=== PATIENT | male | born 1955 | race Caucasian/White ===

== ENCOUNTER 2017-06-23 23:34 | Observation (INO) ==
[2017-06-23 23:56] LABS: Basophils # 0.1 K/mcL (0.0-0.2); Basophils % 0.8 %; Eosinophils # 0.5 K/mcL (0.0-0.6); Eosinophils % 3.5 %; Hematocrit 41.6 % (37.5-50.1); Hemoglobin 14.5 g/dL (12.9-16.9); Immature Granulocytes % 0.6 % (0-4); Lymphocytes # 3.8 K/mcL (0.6-4.6); Lymphocytes % 27.4 %; Mean Corpuscular HGB Conc 34.9 g/dL (31.6-35.5); Mean Corpuscular Hemoglobin 33.5 pg (28.0-33.3); Mean Corpuscular Volume 96.1 fL (83.0-100.0); Mean Platelet Volume 10.4 fL (9.4-12.4); Monocytes # 1.1 K/mcL (0.0-1.3); Monocytes % 7.7 %; Neutrophils # 8.2 K/mcL (1.6-8.9); Platelet Count 199 K/mcL (140-400); Red Blood Count 4.33 M/mcL (4.19-5.50)
[2017-06-24 00:06] LABS: INR 1.1; Prothrombin Time 11.8 Seconds (9.4-12.1)
[2017-06-24 00:09] LABS: Activated Partial Thrombo Time 28.2 Seconds (26.0-36.0)
[2017-06-24 00:15] LABS: BUN/Creatinine Ratio 13 (6-26); Blood Urea Nitrogen 19 mg/dL (6-20); Calcium 9.4 mg/dL (8.6-10.3); Carbon Dioxide 23 mEq/L (23-29); Chloride 106 mEq/L (98-107); Glucose 98 mg/dL (70-105); Osmolality,Calculated 288 (280-300); Potassium 3.5 mEq/L (3.5-5.1); Sodium 138 mEq/L (136-145); eGFR For African Americans 59 (> 60); eGFR For Non-African Americans 48 (> 60)
[2017-06-24 00:16] LABS: Troponin I < 0.03 ng/mL (< 0.04)
[2017-06-24] MEDS ORDERED: 0.9 % Sodium Chloride 1,000 ML IVC ONE (00:27)
[2017-06-24] MEDS ORDERED: Nitroglycerin 0.4 MG TAB.SUBL SL PRN (00:28)
--- NOTE | 2017-06-24 00:30 | Emergency Department Note ---
Disposition Clinical Impression: Dizziness Chest pain Qualifiers: Chest pain type: unspecified Qualified Code(s): R07.9 - Chest pain, unspecified Disposition: Admitted As Inpatient Condition: Fair General Adult HPI - General Chief complaint: ED Chest Pain Stated complaint: "CP/Light Headed/Nauseated" Time Seen by Provider: 06/23/17 23:41 Source: patient, family Limitations: no limitations Nursing Notes Reviewed: Yes Vital Signs Reviewed: Yes - History of Present Illness HPI Narrative: 61-year-old male has emergency department complaining of a month-long history of chest pain. Patient describes this as chest pressure. He localizes it to the Center his chest. Patient states he is a smoker, has hypertension. Patient states that he is also experiencing a little bit of dizziness. Patient describes it as feeling as if the room is spinning. Patient denies any numbness or tingling in the upper and lower extremities. Patient states that this is worse when he stands up and moves his head a certain way. Pain Scale: 6 - Related Data Home Medications Medication Instructions Recorded Confirmed Advair 100-50 Diskus 08/14/15 08/14/15 Metoprolol 08/14/15 Risperdal 08/14/15 Symbicort 80/4.5 08/14/15 ATROVENT Inhaler 06/23/17 Advair 100-50 Diskus 06/23/17 Albuterol Sulfate 06/23/17 Atorvastatin Calcium 06/23/17 Incruse Ellipta 06/23/17 Lisinopril-HCTZ 20-12.5 06/23/17 Meloxicam 06/23/17 Metoprolol Succinate 06/23/17 Omeprazole 06/23/17 Percocet 10-325 mg Tablet 06/23/17 Symbicort 160/4.5 06/23/17 Tamsulosin HCl 06/23/17 Ventolin Hfa 06/23/17 06/23/17 Allergies Allergy/AdvReac Type Severity Reaction Status Date / Time ciprofloxacin [From Cipro] Allergy Hives Verified 06/23/17 23:39 All systems ED: reviewed and negative except as stated. Review of Systems: As Per HPI Constitutional: Denies: fever Cardiovascular: Reports: chest pain. Denies: palpitations Respiratory: Reports: dyspnea. Denies: cough Gastrointestinal: Reports: abdominal pain. Denies: nausea, vomiting Genitourinary: Denies: urgency, dysuria Musculoskeletal: Reports: back pain, other (Left arm pain) Neurological: Reports: paresthesias (Left arm). Denies: headache Endocrine: Reports: fatigue Past Medical History - Past Medical History Medical history: Reports: COPD, hypertension Surgical history: Reports: no surgical history Psychiatric history: Reports: no psych history - Social History Smoking Status: Current every day smoker Smokeless Tobacco Status: No Alcohol use: Reports: none Drug use: Reports: none Physical Exam - General Limitations: no limitations General appearance: alert - Head Head exam: atraumatic, normocephalic - Eye Eye exam: Absent: scleral icterus, conjunctival injection - ENT ENT exam: normal exam, normal oropharynx - Neck Neck exam: Present: trachea midline. Absent: tenderness, meningismus - Chest Chest inspection: Present: normal inspection, symmetric chest wall rise - Respiratory Respiratory exam: Present: other (Rhonchi). Absent: respiratory distress - Cardiovascular Cardiovascular exam: Present: regular rate, normal rhythm, normal heart sounds - Abdominal Exam Abdominal exam: Present: soft, Non-Tender. Absent: distention, guarding, rebound - Extremities Exam Extremities exam: Present: full ROM, normal capillary refill. Absent: tenderness - Back Exam Back exam: Present: normal inspection, full ROM - Neurological Exam Neurological exam: Present: alert, oriented X3, CN II-XII intact, other (GCS 15) - Psychiatric Psychiatric exam: Present: normal affect, normal mood Course Vital Signs Temperature 97.2 F L 06/23/17 23:40 Pulse Rate 72 06/23/17 23:40 Respiratory Rate 14 06/23/17 23:40 Blood Pressure 133/68 06/23/17 23:40 O2 Sat by Pulse Oximetry 94 06/23/17 23:40 Temperature 97.2 F L 06/23/17 23:40 Pulse Rate 66 06/24/17 02:30 Respiratory Rate 18 06/24/17 02:30 Blood Pressure 106/69 06/24/17 02:30 O2 Sat by Pulse Oximetry 95 06/24/17 02:30 Oxygen Delivery Oxygen Delivery Room Air Medical Decision Making - MDM Narrative Medical decision making narrative: 61-year-old male presents emergency department with chest heaviness. Patient has history of MA in father, hyperlipidemia, is a smoker. His chest pain is typical. Electrocardiogram did not reveal any evidence of ischemic ST changes. Troponin was negative. CBC was within normal limits. Chest x-ray was normal. Patient was given sublingual nitroglycerin 2 and pain did not respond to this. He was then given fentanyl. Patient had acute renal insufficiency with mildly elevated creatinine. This was addressed with a liter of normal saline. Patient was also reporting some vertigo-type symptoms. CT of the head was obtained did not reveal any evidence of hemorrhagic stroke. There were no focal neurologic deficits on physical exam. GCS of 15. Meclizine was provided in this assisted with his symptoms. At this time, I believe this is most likely BPPV. Patient was given aspirin. Head CT 06/24/17 00:41 IMPRESSION: No acute intracranial abnormality. D/ / Frandy Sanchez MD / Frandy Sanchez MD Interpreting Provider: Frandy Sanchez MD Chest X-Ray 06/24/17 23:41 IMPRESSION: No acute process. D/ / Frandy Sanchez MD / Frandy Sanchez MD Interpreting Provider: Frandy Sanchez MD Vital Signs Temperature 97.2 F L 06/23/17 23:40 Pulse Rate 72 06/23/17 23:40 Respiratory Rate 14 06/23/17 23:40 Blood Pressure 133/68 06/23/17 23:40 O2 Sat by Pulse Oximetry 94 06/23/17 23:40 Temperature 97.2 F L 06/23/17 23:40 Pulse Rate 66 06/24/17 02:30 Respiratory Rate 18 06/24/17 02:30 Blood Pressure 106/69 06/24/17 02:30 O2 Sat by Pulse Oximetry 95 06/24/17 02:30 Oxygen Delivery Oxygen Delivery Room Air Patient was admitted for further workup of his chest pain. He is hemodynamically stable and not in any acute distress at time of admission. - Lab Data Result diagrams: 06/23/17 23:44 06/23/17 23:44 Lab Results 06/23/17 06/23/17 06/23/17 Range/Units 23:44 23:44 23:44 WBC 13.7 H (4.3-11.1) K/mcL RBC 4.33 (4.19-5.50) M/mcL Hgb 14.5 (12.9-16.9) g/dL Hct 41.6 (37.5-50.1) % MCV 96.1 (83.0-100.0) fL MCH 33.5 H (28.0-33.3) pg MCHC 34.9 (31.6-35.5) g/dL RDW 13.0 (11.5-14.5) % Plt Count 199 (140-400) K/mcL MPV 10.4 (9.4-12.4) fL Immature Gran % 0.6 (0-4) % Seg Neutrophils % 60.0 % Lymphocytes % 27.4 % Monocytes % 7.7 % Eosinophils % 3.5 % Basophils % 0.8 % Neutrophils # 8.2 (1.6-8.9) K/mcL Lymphocytes # 3.8 (0.6-4.6) K/mcL Monocytes # 1.1 (0.0-1.3) K/mcL Eosinophils # 0.5 (0.0-0.6) K/mcL Basophils # 0.1 (0.0-0.2) K/mcL PT 11.8 (9.4-12.1) Seconds INR 1.1 APTT 28.2 (26.0-36.0) Seconds D-Dimer 470 (0-500) ng/mLFEU Sodium 138 (136-145) mEq/L Potassium 3.5 (3.5-5.1) mEq/L Chloride 106 (98-107) mEq/L Carbon Dioxide 23 (23-29) mEq/L BUN 19 (6-20) mg/dL Creatinine 1.49 H (0.70-1.30) mg/dL Est GFR ( Amer) 59 L (> 60) Est GFR (Non-Af Amer) 48 L (> 60) BUN/Creatinine Ratio 13 (6-26) Glucose 98 (70-105) mg/dL Calculated Osmolality 288 (280-300) Calcium 9.4 (8.6-10.3) mg/dL Troponin I < 0.03 (< 0.04) ng/mL B-Natriuretic Peptide (Less than 100) pg/mL 05/18/18 Range/Units 23:44 WBC (4.3-11.1) K/mcL RBC (4.19-5.50) M/mcL Hgb (12.9-16.9) g/dL Hct (37.5-50.1) % MCV (83.0-100.0) fL MCH (28.0-33.3) pg MCHC (31.6-35.5) g/dL RDW (11.5-14.5) % Plt Count (140-400) K/mcL MPV (9.4-12.4) fL Immature Gran % (0-4) % Seg Neutrophils % % Lymphocytes % % Monocytes % % Eosinophils % % Basophils % % Neutrophils # (1.6-8.9) K/mcL Lymphocytes # (0.6-4.6) K/mcL Monocytes # (0.0-1.3) K/mcL Eosinophils # (0.0-0.6) K/mcL Basophils # (0.0-0.2) K/mcL PT (9.4-12.1) Seconds INR APTT (26.0-36.0) Seconds D-Dimer (0-500) ng/mLFEU Sodium (136-145) mEq/L Potassium (3.5-5.1) mEq/L Chloride (98-107) mEq/L Carbon Dioxide (23-29) mEq/L BUN (6-20) mg/dL Creatinine (0.70-1.30) mg/dL Est GFR ( Amer) (> 60) Est GFR (Non-Af Amer) (> 60) BUN/Creatinine Ratio (6-26) Glucose (70-105) mg/dL Calculated Osmolality (280-300) Calcium (8.6-10.3) mg/dL Troponin I (< 0.04) ng/mL B-Natriuretic Peptide 73 (Less than 100) pg/mL - EKG Data EKG #1 EKG attestation: Yes I reviewed and interpreted this EKG. EKG results narrative: 06/23/2017 23:43 Ventricular rate 73 bpm, MA interval 192 ms, QRS religious 97 segs, QT 377 ms , QTC 404 ms, no masses. Sinus rhythm with a ventricular rate of 73 bpm. Prazosin any ischemic changes noted on this electrocardiogram. This electrocardiogram was compared to a previous study performed on 07/10/2010. Attestation Statement - Attestation Attestation: I, Antonio Baum, examined this patient and my medical decision-making was reviewed with the [facility]/PA/Advanced Practice Nurse/Resident Physician. I agree with the documented findings, disposition and treatment plan as described except to the extent set forth below. 61-year-old male presents emergency Department with concerns of chest pain and lightheadedness. Patient states the "dizziness" feels like room spinning. Never had anything like this in the past. Patient describes pain in the center of his chest which is described as a pressure. Patient describes associated shortness of breath and diaphoresis with this chest pain. Initial troponin negative. EKG did not show evidence of acute STEMI. Patient will be admitted to the hospitalist for further care and evaluation of his chest pain
[2017-06-24] MEDS ORDERED: *HR* FentaNYL (PF) 100 MCG/2 ML VIAL IVP ONE (01:37)
[2017-06-24] MEDS ORDERED: Aspirin 81 MG TAB.CHEW PO ONE (02:03)
[2017-06-24] MEDS ORDERED: Ondansetron 4 MG/2 ML VIAL IVP ONE (04:31)
[2017-06-24] MEDS ORDERED: Naloxone 0.4 MG/ML INJ IVP PRN (05:04)
--- NOTE | 2017-06-24 05:09 | Internal Med History&Physical ---
Date of Encounter: 06/24/17 Time of Encounter: 04:50 Internal Medicine - H&P: HPI Chief complaint: chest pain Admitted From: Home Plans for Post Hospital Care: Home History of present illness: Mr. Andrew is a 61 year old male with PMH of HTN, COPD, tobacco abuse, morbid obesity, HLD, GERD, BPH who presents to the ER for worsening chest pain. Pt states he has been having localized substernal chest heaviness for the last week however yesterday evening the heaviness worsened which prompted his visit to the ER. He denied any associated symptoms with the chest pain, denied any alleviating or exacerbating symptoms. He received nitro SL in the ER with no improvement of his chest pain. He was given fentanyl which resolved the chest pain. He reports of having a stress test in the past years ago which was normal , however he states it left him feeling extremely fatigued and short of breath, due to which he does not want to undergo another stress test at this time. He also reported of having dizziness and sensation of the room spinning with movement. He received Meclazine in the ER which resolved his dizziness. Currently he is resting comfortably in bed and denies any headache, dizziness, lightheadness, chest pain, sob, abd pain, n/v, fever, or chills. Pt reports of being an every day smoker. Past Med Surg Social Fam HX - Past Medical History Medical history: COPD, hyperlipidemia, hypertension Psychiatric history: no psych history - Past Surgical History Surgical History: no surgical history - Social History Smoking Status: Current every day smoker Packs per day: 0.5 Smokeless Tobacco Status: No Alcohol use: none Drug use: none Internal Medicine - H&P: Meds Advair 100-50 Diskus 08/14/15 [History] Metoprolol 08/14/15 [History] Risperdal 08/14/15 [History] Symbicort 80/4.5 08/14/15 [History] ATROVENT Inhaler 06/23/17 [History] Advair 100-50 Diskus 06/23/17 [History] Albuterol Sulfate 06/23/17 [History] Atorvastatin Calcium 06/23/17 [History] Incruse Ellipta 06/23/17 [History] Lisinopril-HCTZ 20-12.5 06/23/17 [History] Meloxicam 06/23/17 [History] Metoprolol Succinate 06/23/17 [History] Omeprazole 06/23/17 [History] Percocet 10-325 mg Tablet 06/23/17 [History] Symbicort 160/4.5 06/23/17 [History] Tamsulosin HCl 06/23/17 [History] Ventolin Hfa 06/23/17 [History] 3 Allergy/AdvReac Type Severity Reaction Status Date / Time ciprofloxacin [From Cipro] Allergy Hives Verified 06/23/17 23:39 All Systems PM: A 10-system review of systems was performed and is negative for pertinent findings except as documented above in the HPI. - Constitutional Constitutional: as per HPI - Constitutional Vitals: Temp Pulse Resp BP Pulse Ox 98.0 F 64 16 103/60 95 06/24/17 04:15 06/24/17 04:15 06/24/17 04:15 06/24/17 04:15 06/24/17 04:15 General appearance: Present: A&O X 3, morbidly obese, no acute distress, answers questions appropriately - Head Head exam: Present: atraumatic, normocephalic - Respiratory Respiratory exam: Present: CTAB. Absent: accessory muscle use, rales, rhonchi, wheezes - Cardiovascular Cardiovascular exam: Present: RRR, +S1, +S2. Absent: diastolic murmur, gallop, rubs, systolic murmur - GI/Abdominal GI/Abdominal exam: Present: distended (obese), normal bowel sounds, soft, no peritoneal signs. Absent: tenderness - Extremities Exam Extremities exam: Present: warm, radial pulses palpable and symmetrical. Absent : calf tenderness, pedal edema - Neurological Exam Neurological exam: Present: oriented X3 - Psychiatric Psychiatric exam: Present: normal affect, normal mood Internal Med - H&P Results - Labs CBC & Chem 7: 06/23/17 23:44 06/23/17 23:44 - Impressions ITS Impressions Chest X-Ray 06/24/17 23:41 IMPRESSION: No acute process. D/ / Frandy Sanchez MD / Frandy Sanchez MD Interpreting Provider: Frandy Sanchez MD - Assessment and plan (1) Chest pain Current Visit: Yes Status: Acute Assessment and plan: Pt continues to adamantly refuse a nuclear stress test continue to monitor serial TNI f/u 2D echo pt is currently chest pain free tele monitoring Qualifiers: Chest pain type: unspecified Qualified Code(s): R07.9 - Chest pain, unspecified (2) KRIS (acute kidney injury) Current Visit: Yes Status: Acute Assessment and plan: continue IV fluids avoid nephrotoxic agents closely monitor renal function (3) Dizziness Current Visit: Yes Status: Acute Assessment and plan: clinical presentation consistent with BPPV resolved after receiving a dose of meclizine in the ER will continue to monitor (4) HTN (hypertension) Current Visit: Yes Status: Chronic Assessment and plan: BP within acceptable range resume home meds after verification continue to monitor BP Qualifiers: Hypertension type: essential hypertension Qualified Code(s): I10 - Essential (primary) hypertension (5) COPD (chronic obstructive pulmonary disease) Current Visit: Yes Status: Chronic Assessment and plan: no signs of acute exacerbation continue home meds Qualifiers: COPD type: unspecified COPD Qualified Code(s): J44.9 - Chronic obstructive pulmonary disease, unspecified (6) DVT prophylaxis Current Visit: Yes Status: Acute Assessment and plan: heparin SQ (7) Morbid obesity with BMI of 50.0-59.9, adult Current Visit: Yes Status: Chronic (8) Tobacco abuse Current Visit: Yes Status: Acute Assessment and plan: Smoking cessation counseling provided pt not ready to quit at this time refused nicotine supplementation - Time Spent With Patient Total time spent is greater than 50% in coordination of care (as documented) at patient's floor/unit and/or counseling patient:
[2017-06-24] MEDS ORDERED: 0.9 % Sodium Chloride 1,000 ML IVC SCH (05:15)
[2017-06-24] MEDS ORDERED: Ipratropium/Albuterol Neb 3 ML IH PRN (05:21)
[2017-06-24] MEDS: *HR* Heparin 5,000 UNIT/ML VIAL SQ SCH ×2 (05:26→18:00)
[2017-06-24] MEDS ORDERED: Perflutren Lipid Microsphere 1.3 ML in 0.9 % Sodium Chloride 8.7 ML IVP ONE (11:50)
[2017-06-24] MEDS: Budesonide/Formoterol 160/4.5 MDI IH SCH (20:09)
[2017-06-24] MEDS: *HR* OxyCODONE/APAP 10/325 TABLET PO PRN (21:19)
[2017-06-25 01:39] LABS: Basophils # 0.1 K/mcL (0.0-0.2); Basophils % 0.8 %; Eosinophils # 0.3 K/mcL (0.0-0.6); Eosinophils % 3.7 %; Hematocrit 38.4 % (37.5-50.1); Hemoglobin 12.7 g/dL (12.9-16.9); Immature Granulocytes % 0.4 % (0-4); Lymphocytes # 2.6 K/mcL (0.6-4.6); Lymphocytes % 28.2 %; Mean Corpuscular HGB Conc 33.1 g/dL (31.6-35.5); Mean Corpuscular Volume 96.7 fL (83.0-100.0); Mean Platelet Volume 10.7 fL (9.4-12.4); Monocytes # 0.6 K/mcL (0.0-1.3); Monocytes % 6.3 %; Neutrophils # 5.6 K/mcL (1.6-8.9); Platelet Count 154 K/mcL (140-400); Red Blood Count 3.97 M/mcL (4.19-5.50); Red Cell Distribution Width 13.2 % (11.5-14.5); Segmented Neutrophils % 60.6 %
[2017-06-25 01:59] LABS: BUN/Creatinine Ratio 14 (6-26); Blood Urea Nitrogen 17 mg/dL (6-20); Calcium 8.9 mg/dL (8.6-10.3); Carbon Dioxide 26 mEq/L (23-29); Chloride 108 mEq/L (98-107); Chol/HDL Ratio 5.9 (0-4.9); Cholesterol 148 mg/dL (< 200); Glucose 133 mg/dL (70-105); HDL Cholesterol 25 mg/dL (40-59); LDL Cholesterol,Calculated 95 mg/dL (0-99); Magnesium 1.8 mg/dL (1.6-2.6); Osmolality,Calculated 291 (280-300); Phosphorous 3.2 mg/dL (2.7-4.5); Potassium 3.5 mEq/L (3.5-5.1); Sodium 139 mEq/L (136-145); Triglycerides 142 mg/dL (< 150); eGFR For African Americans > 60 (> 60); eGFR For Non-African Americans > 60 (> 60)
[2017-06-25] MEDS: *HR* Heparin 5,000 UNIT/ML VIAL SQ SCH (05:29)
[2017-06-25 06:23] VITALS: BP 125/81
[2017-06-25] MEDS: Budesonide/Formoterol 160/4.5 MDI IH SCH (07:54)
[2017-06-25] MEDS: *HR* OxyCODONE/APAP 10/325 TABLET PO PRN (08:15)
[2017-06-25] MEDS ORDERED: (Umeclidinium Bromide [Incruse Ellipta] 62.5 MCG) IH SCH (09:00)
[2017-06-25] MEDS ORDERED: Metoprolol XL (24 HR) Succ 50 MG TAB.ER.24H PO SCH (09:00)
--- NOTE | 2017-06-25 10:05 | Discharge Summary ---
- NOTES TO OUTPATIENT PROVIDER Notes to Outpatient Provider: Patient admitted with chest pain. Did not want stress test at this time as he had a bad reaction to his last stress test. 2-D echocardiogram done showed normal EF of 60-65% with normal wall motion. He is clinically stable to be discharged home. He has had no chest pain since yesterday. He will follow up with his primary care provider and schedule a different kind of stress test as outpatient. Date of Encounter: 06/25/17 Time of Encounter: 10:02 - Discharge Diagnosis (1) Chest pain Priority: Primary Status: Acute Qualifiers: Chest pain type: other chest pain Qualified Code(s): R07.89 - Other chest pain; R07.8 - Other chest pain (2) Dizziness Priority: Secondary Status: Acute (3) HTN (hypertension) Priority: Secondary Status: Chronic Qualifiers: Hypertension type: essential hypertension Qualified Code(s): I10 - Essential (primary) hypertension (4) COPD (chronic obstructive pulmonary disease) Priority: Secondary Status: Chronic Qualifiers: COPD type: unspecified COPD Qualified Code(s): J44.9 - Chronic obstructive pulmonary disease, unspecified (5) DVT prophylaxis Priority: Secondary Status: Acute (6) Morbid obesity with BMI of 50.0-59.9, adult Priority: Secondary Status: Chronic (7) Tobacco abuse Priority: Secondary Status: Acute (8) KRIS (acute kidney injury) Priority: Secondary Status: Resolved Hospital course: Mr. Andrew is a 61 year old male Patient hospitalized here after presenting to the ER with chest pain. Usually refuses stress test as he had a bad reaction when he last time had a done. 2-D echocardiogram done showed normal EF of 60-65 % with normal wall motion. He did have mild acute kidney injury on presentation but this has resolved now. He had symptoms of dizziness on initial presentation which appeared to be due to BPPV. He received meclizine with resolution of dizziness in the ER. He received IV fluids. He no longer has any chest pain now. Troponins were negative. He is clinically stable to be discharged home. He will follow up with his primary care provider and schedule a different kind of stress test as outpatient. He has been counseled about smoking cessation. Discharge discussed with: patient, nurse Time spent discussing smoking cessation with patient: 3 to 10 minutes - Time Spent with Patient Total time spent providing and/or coordinating discharge services: Less than 30 minutes (20 min) - Discharge Medications Home Medications: Albuterol Sulfate [Ventolin Hfa] 2 puff IH Q4H PRN 06/24/17 [History] Atorvastatin Calcium [Lipitor] 80 mg PO HS 06/24/17 [History] Budesonide/Formoterol 160/4.5 [Symbicort 160/4.5] 2 puff IH BID 06/24/17 [ History] Fluticasone/Salmeterol [Advair 250-50 Diskus] 1 puff IH BID 06/24/17 [History] Lisinopril/Hydrochlorothiazide [Zestoretic 20-25 mg Tablet] 1 tab PO DAILY 06/24 [History] Meloxicam [Mobic] 15 mg PO DAILY PRN 06/24/17 [History] Metoprolol Succinate [Toprol Xl] 50 mg PO DAILY 06/24/17 [History] Omeprazole [PriLOSEC] 20 mg PO BIDAC 06/24/17 [History] Oxycodone HCl/Acetaminophen [Percocet 10-325 mg Tablet] 1 tab PO QID PRN [History] Tamsulosin [Flomax] 0.8 mg PO DAILY 06/24/17 [History] Umeclidinium [place] [Incruse Ellipta] 62.5 mcg IH DAILY 06/24/17 [History] Allergies/Adverse Reactions: 3 Allergy/AdvReac Type Severity Reaction Status Date / Time ciprofloxacin [From Cipro] Allergy Hives Verified 06/24/17 12:26 Date of admission: 06/24/17 03:00 Primary care physician: Brittany Alva Discharging clinician: Rikki Bergman Anticipated date of discharge: 06/25/17 - Constitutional Vitals: Temp Pulse Resp BP Pulse Ox 98.0 F 58 15 125/81 97 06/25/17 06:22 06/25/17 06:22 06/25/17 07:54 06/25/17 06:22 06/25/17 07:54 General appearance: Present: A&O X 3, morbidly obese, no acute distress, answers questions appropriately - Neck Neck exam general surgery: Present: supple, trachea midline. Absent: lymphadenopathy - Respiratory Respiratory exam: Present: CTAB. Absent: accessory muscle use, rales, rhonchi, wheezes - Cardiovascular Cardiovascular exam: Present: RRR, +S1, +S2. Absent: diastolic murmur, gallop, rubs, systolic murmur - GI/Abdominal GI/Abdominal exam: Present: normal bowel sounds, soft, no peritoneal signs. Absent: distended, tenderness - Neurological Exam Neurological exam: Present: alert, CN II-XII intact, oriented X3, no focal deficits. Absent: pronater drift, facial droop, speech deficit - Skin Skin exam: Present: dry, intact - Patient Status Disposition: Home, Self-Care Condition: Good Functional capacity at discharge: independent ambulation Overall status at discharge: patient is progressing back to baseline - Discharge Instructions Instructions: Chest Pain (DC) Follow Up With: Mega Valles DO [Primary Care Provider] - (in 1-2 weeks) Additional Instructions: Follow up with cardiology for cardiac stress test as outpatient. - Diet and Activity Activity: increase activity as tolerated Diet: low fat, low cholesterol, low salt diet
--- NOTE | 2017-06-26 14:19 | Electrocardiograph Report ---
[address] [address] Test Date: 2017-06-23 Pat Name: Jason Andrew Department: 103 Room: [facility] Gender: M Heel Emery Buffer: DEVIN : 1955 Requested By: Antonio Baum Order Number: [id number] Reading MD: Iraida Silva Measurements Intervals [place] Rate: 73 P: 34 ID: [id number] QRS: 44 QRSD: 97 T: 40 QT: 377 QTc: 404 Interpretive Statements SINUS RHYTHM Electronically Signed On 06-26-2017 14:18:10 EDT by Iraida Silva
== END 2017-06-25 11:27 | disposition home or self-care (01) ==
LOC: 3NENU 23:34 → EMEROO 23:34 → 3NENU 06-24 03:45
PROVIDERS: ADMIT Internal Medicine; ATTEND Internal Medicine

== ENCOUNTER 2018-12-14 19:12 | Observation (INO) ==
[2018-12-14 20:03] LABS: Basophils # 0.1 K/mcL (0.0-0.2); Basophils % 0.5 %; Eosinophils # 0.2 K/mcL (0.0-0.6); Eosinophils % 2.1 %; Hematocrit 42.6 % (37.5-50.1); Hemoglobin 14.6 g/dL (12.9-16.9); Immature Granulocytes % 0.5 % (0-4); Lymphocytes # 1.8 K/mcL (0.6-4.6); Lymphocytes % 17.6 %; Mean Corpuscular HGB Conc 34.3 g/dL (31.6-35.5); Mean Corpuscular Hemoglobin 33.4 pg (28.0-33.3); Mean Corpuscular Volume 97.5 fL (83.0-100.0); Mean Platelet Volume 9.9 fL (9.4-12.4); Monocytes # 0.8 K/mcL (0.0-1.3); Monocytes % 7.3 %; Neutrophils # 7.6 K/mcL (1.6-8.9); Platelet Count 136 K/mcL (140-400); Red Blood Count 4.37 M/mcL (4.19-5.50); Red Cell Distribution Width 13.1 % (11.5-14.5); White Blood Count 10.5 K/mcL (4.3-11.1)
[2018-12-14 20:13] LABS: BUN/Creatinine Ratio 11 (6-26); Blood Urea Nitrogen 11 mg/dL (8-23); Calcium 9.1 mg/dL (8.6-10.3); Carbon Dioxide 25 mEq/L (23-29); Chloride 102 mEq/L (98-107); Glucose 115 mg/dL (70-105); Osmolality,Calculated 284 (280-300); Potassium 3.3 mEq/L (3.5-5.1); Sodium 137 mEq/L (136-145); Troponin I < 0.03 ng/mL (< 0.04); eGFR For African Americans > 60 (> 60); eGFR For Non-African Americans > 60 (> 60)
[2018-12-14] MEDS ORDERED: Aspirin 325 MG TABLET PO ONE (20:36)
[2018-12-14] MEDS ORDERED: Potassium Chloride Elixir 20 MEQ/15 ML UDC PO ONE (22:37)
[2018-12-14] MEDS ORDERED: Nitroglycerin 0.4 MG TAB.SUBL SL PRN (22:59)
[2018-12-14] MEDS ORDERED: Nitroglycerin 0.4 MG TAB.SUBL SL ONE (23:00)
[2018-12-15] MEDS: *HR* OxyCODONE/APAP 10/325 TABLET PO PRN ×3 (00:06→14:47)
[2018-12-15] MEDS: *HR* Heparin 5,000 UNIT/ML VIAL SQ SCH ×2 (05:21→16:41)
[2018-12-15] MEDS ORDERED: Valsartan 160 MG TABLET PO SCH (09:00)
[2018-12-15] MEDS ORDERED: Aspirin 81 MG TAB.CHEW PO SCH (09:00)
[2018-12-15] MEDS ORDERED: hydroCHLOROthiazide 25 MG TABLET PO SCH (09:00)
[2018-12-15] MEDS ORDERED: Metoprolol XL (24 HR) Succ 50 MG TAB.ER.24H PO SCH (09:00)
[2018-12-15] MEDS ORDERED: Budesonide/Formoterol 160/4.5 1 PUFF INH IH SCH (10:00)
[2018-12-15 15:39] VITALS: BP 113/64
== END 2018-12-15 18:07 | disposition home or self-care (01) ==
LOC: 3BNU 19:12 → EMEROOARM 19:12 → 3BNU 21:14
PROVIDERS: ADMIT Internal Medicine; ATTEND Internal Medicine

== ENCOUNTER 2019-09-25 01:40 | Observation (INO) ==
[2019-09-25 02:14] LABS: Basophils # 0.1 K/mcL (0.0-0.2); Basophils % 0.8 %; Eosinophils # 0.5 K/mcL (0.0-0.6); Eosinophils % 5.7 %; Hematocrit 39.6 % (37.5-50.1); Hemoglobin 13.1 g/dL (12.9-16.9); Immature Granulocytes % 0.2 % (0-4); Lymphocytes # 2.5 K/mcL (0.6-4.6); Lymphocytes % 28.7 %; Mean Corpuscular HGB Conc 33.1 g/dL (31.6-35.5); Mean Corpuscular Hemoglobin 31.4 pg (28.0-33.3); Mean Platelet Volume 10.5 fL (9.4-12.4); Monocytes # 0.7 K/mcL (0.0-1.3); Neutrophils # 4.9 K/mcL (1.6-8.9); Platelet Count 181 K/mcL (140-400); Red Blood Count 4.17 M/mcL (4.19-5.50); Red Cell Distribution Width 13.7 % (11.5-14.5); Segmented Neutrophils % 56.6 %; White Blood Count 8.7 K/mcL (4.3-11.1)
[2019-09-25 02:16] LABS: Bilirubin,Urine Negative (Negative); Blood,Urine Negative (Negative); Clarity,Urine Clear (Clear); Color,Urine Colorless (Yellow); Glucose,Urine (UA) Normal (Normal); Ketones,Urine Negative (Negative); Leukocyte Esterase,Urine Negative (Negative); Nitrite,Urine Negative (Negative); Protein,Urine Negative (Neg-Trace); Specific Gravity,Urine 1.008 (1.010-1.025); Urobilinogen,Urine Normal (Normal)
[2019-09-25 02:17] LABS: INR 1.1; Prothrombin Time 12.3 Seconds (9.4-12.1)
[2019-09-25 02:20] LABS: Activated Partial Thrombo Time 31.2 Seconds (26.0-36.0)
[2019-09-25 02:26] LABS: Amphetamine Screen,Urine Negative ng/mL (Cutoff=1000); Barbiturate Screen,Urine Negative ng/mL (Cutoff=200); Benzodiazepines Screen,Urine Negative ng/mL (Cutoff=200); Cannabinoid Screen,Urine Negative ng/mL (Cutoff = 50); Cocaine Screen,Urine Negative ng/mL (Cutoff= 300); Opiate Screen,Urine Negative ng/mL (Cutoff=300); Phencyclidine Screen,Urine Negative ng/mL (Cutoff=25)
[2019-09-25 02:36] LABS: Alanine Aminotransferase 13 Units/L (7-52); Albumin/Globulin Ratio 1.1 (1.1-2.2); Alkaline Phosphatase 117 Units/L (34-104); Aspartate Amino Transferase 17 Units/L (13-39); BUN/Creatinine Ratio 17 (6-26); Bilirubin,Direct 0.1 mg/dL (0.0-0.2); Bilirubin,Indirect 0.3 mg/dL (0.0-1.0); Bilirubin,Total 0.4 mg/dL (0.3-1.0); Blood Urea Nitrogen 20 mg/dL (8-23); Calcium 9.3 mg/dL (8.6-10.3); Carbon Dioxide 26 mEq/L (23-29); Chloride 102 mEq/L (98-107); Ethanol < 10 mg/dL (Less than 10); Globulin 3.6 g/dL (2.4-3.5); Glucose 93 mg/dL (70-105); Osmolality,Calculated 286 (280-300); Potassium 4.5 mEq/L (3.5-5.1); Sodium 137 mEq/L (136-145); Total Protein 7.6 g/dL (6.4-8.9); Troponin I < 0.03 ng/mL (< 0.04); eGFR For African Americans > 60 (> 60); eGFR For Non-African Americans > 60 (> 60)
[2019-09-25 02:49] LABS: Thyroid Stimulating Hormone 2.029 mcIU/mL (0.340-5.600)
[2019-09-25] MEDS ORDERED: Aspirin 81 MG TAB.CHEW PO STA (03:17)
[2019-09-25] MEDS ORDERED: Acetaminophen 325 MG TABLET PO PRN (03:48)
[2019-09-25] MEDS ORDERED: Naloxone 0.4 MG/ML INJ IVP PRN (03:48)
[2019-09-25] MEDS ORDERED: Ondansetron 4 MG/2 ML VIAL IVP PRN (03:48)
[2019-09-25] MEDS: *HR* OxyCODONE/APAP 10/325 TABLET PO PRN ×3 (04:36→20:11)
[2019-09-25] MEDS ORDERED: Perflutren Lipid Microsphere 1.3 ML in 0.9 % Sodium Chloride 8.7 ML IVP PRN (05:01)
[2019-09-25 05:13] LABS: Basophils # 0.1 K/mcL (0.0-0.2); Basophils % 0.7 %; Eosinophils # 0.5 K/mcL (0.0-0.6); Hematocrit 39.1 % (37.5-50.1); Hemoglobin 12.7 g/dL (12.9-16.9); Immature Granulocytes % 0.4 % (0-4); Lymphocytes # 2.6 K/mcL (0.6-4.6); Lymphocytes % 32.1 %; Mean Corpuscular HGB Conc 32.5 g/dL (31.6-35.5); Mean Corpuscular Hemoglobin 30.6 pg (28.0-33.3); Mean Corpuscular Volume 94.2 fL (83.0-100.0); Mean Platelet Volume 10.4 fL (9.4-12.4); Monocytes # 0.6 K/mcL (0.0-1.3); Monocytes % 7.1 %; Neutrophils # 4.3 K/mcL (1.6-8.9); Platelet Count 178 K/mcL (140-400); Red Blood Count 4.15 M/mcL (4.19-5.50); Red Cell Distribution Width 13.7 % (11.5-14.5); Segmented Neutrophils % 53.7 %
[2019-09-25 05:33] LABS: Chol/HDL Ratio 6.4 (0-4.9); Magnesium 1.7 mg/dL (1.6-2.6); Phosphorous 3.3 mg/dL (2.7-4.5)
[2019-09-25 05:34] LABS: BUN/Creatinine Ratio 17 (6-26); Blood Urea Nitrogen 19 mg/dL (8-23); Calcium 9.4 mg/dL (8.6-10.3); Carbon Dioxide 26 mEq/L (23-29); Chloride 102 mEq/L (98-107); Glucose 106 mg/dL (70-105); Osmolality,Calculated 287 (280-300); Potassium 4.2 mEq/L (3.5-5.1); Sodium 137 mEq/L (136-145); eGFR For African Americans > 60 (> 60); eGFR For Non-African Americans > 60 (> 60)
[2019-09-25] MEDS: Tiotropium 18 MCG inhalation IH SCH (07:56)
[2019-09-25] MEDS: Budesonide/Formoterol 160/4.5 1 PUFF INH IH SCH ×2 (07:56→20:32)
[2019-09-25] MEDS: Valsartan 160 MG TABLET PO SCH (07:59)
[2019-09-25] MEDS: hydroCHLOROthiazide 25 MG TABLET PO SCH (07:59)
[2019-09-25] MEDS: Metoprolol XL (24 HR) Succ 50 MG TAB.ER.24H PO SCH (07:59)
[2019-09-25] MEDS: Aspirin Enteric Coated 81 MG Tablet PO SCH (07:59)
[2019-09-25 08:48] LABS: Estimated Average Glucose 123 mg/dl
[2019-09-26] MEDS: *HR* OxyCODONE/APAP 10/325 TABLET PO PRN ×2 (02:23→08:32)
[2019-09-26 02:26] LABS: Hematocrit 36.1 % (37.5-50.1); Hemoglobin 11.8 g/dL (12.9-16.9); Mean Corpuscular HGB Conc 32.7 g/dL (31.6-35.5); Mean Corpuscular Volume 94.8 fL (83.0-100.0); Mean Platelet Volume 10.5 fL (9.4-12.4); Platelet Count 160 K/mcL (140-400); Red Blood Count 3.81 M/mcL (4.19-5.50); Red Cell Distribution Width 13.9 % (11.5-14.5); White Blood Count 7.3 K/mcL (4.3-11.1)
[2019-09-26 02:47] LABS: BUN/Creatinine Ratio 17 (6-26); Blood Urea Nitrogen 22 mg/dL (8-23); Calcium 8.8 mg/dL (8.6-10.3); Carbon Dioxide 26 mEq/L (23-29); Chloride 104 mEq/L (98-107); Glucose 110 mg/dL (70-105); Osmolality,Calculated 288 (280-300); Potassium 4.4 mEq/L (3.5-5.1); Sodium 137 mEq/L (136-145); eGFR For African Americans > 60 (> 60); eGFR For Non-African Americans 55 (> 60)
[2019-09-26] MEDS: Valsartan 160 MG TABLET PO SCH (08:27)
[2019-09-26] MEDS: hydroCHLOROthiazide 25 MG TABLET PO SCH (08:27)
[2019-09-26] MEDS: Aspirin Enteric Coated 81 MG Tablet PO SCH (08:28)
[2019-09-26] MEDS: Metoprolol XL (24 HR) Succ 50 MG TAB.ER.24H PO SCH (08:28)
[2019-09-26] MEDS: Tiotropium 18 MCG inhalation IH SCH (10:15)
[2019-09-26] MEDS: Budesonide/Formoterol 160/4.5 1 PUFF INH IH SCH (10:15)
[2019-09-26 10:35] VITALS: BP 93/64
== END 2019-09-26 15:40 | disposition home or self-care (01) ==
LOC: EMEROOARM 01:40 → 3BNU 01:40
PROVIDERS: ADMIT Family Medicine; ATTEND Family Medicine

== ENCOUNTER 2020-11-14 08:49 | Inpatient (IN) ==
[2020-11-14] MEDS ORDERED: Isovue-370 500 ML BOTTLE IVP ONE (09:17)
[2020-11-14 12:07] LABS: Basophils # 0.1 K/mcL (0.0-0.2); Basophils % 0.6 %; Eosinophils # 0.4 K/mcL (0.0-0.6); Eosinophils % 2.3 %; Hemoglobin 11.5 g/dL (12.9-16.9); Lymphocytes % 12.3 %; Mean Corpuscular HGB Conc 32.9 g/dL (31.6-35.5); Mean Corpuscular Volume 100.6 fL (83.0-100.0); Mean Platelet Volume 10.4 fL (9.4-12.4); Monocytes % 6.1 %; Neutrophils # 12.4 K/mcL (1.6-8.9); Platelet Count 248 K/mcL (140-400); Red Blood Count 3.48 M/mcL (4.19-5.50); Segmented Neutrophils % 77.7 %
[2020-11-14 12:39] LABS: Alanine Aminotransferase 18 Units/L (7-52); Albumin 3.5 g/dL (3.5-5.7); Alkaline Phosphatase 110 Units/L (34-104); Aspartate Amino Transferase 50 Units/L (13-39); BUN/Creatinine Ratio 12 (6-26); Bilirubin,Total 1.6 mg/dL (0.3-1.0); Blood Urea Nitrogen 70 mg/dL (8-23); Calcium 9.3 mg/dL (8.6-10.3); Carbon Dioxide 24 mEq/L (23-29); Chloride 95 mEq/L (98-107); Globulin 3.6 g/dL (2.4-3.5); Glucose 108 mg/dL (70-105); Lipase 18 Units/L (11-82); Osmolality,Calculated 299 (280-300); Potassium 3.7 mEq/L (3.5-5.1); Sodium 134 mEq/L (136-145); Total Protein 7.1 g/dL (6.4-8.9); Troponin I < 0.03 ng/mL (< 0.04); eGFR For African Americans 12 (> 60); eGFR For Non-African Americans 10 (> 60)
[2020-11-14] MEDS ORDERED: 0.9 % Sodium Chloride 1,000 ML IVC ONE ×2 (13:02→13:41)
[2020-11-14] MEDS ORDERED: Piperacillin/Tazobactam 3.375 GM in Water for inj. (sterile) 20 ML IVP ONE (13:09)
[2020-11-14 13:13] LABS: Bilirubin,Urine Small (Negative); Blood,Urine Trace (Negative); Clarity,Urine Turbid (Clear); Color,Urine Yellow (Yellow); Glucose,Urine (UA) Normal (Normal); Hyaline Casts,Urine Many per lpf (None Seen); Ketones,Urine Negative (Negative); Leukocyte Esterase,Urine Moderate (Negative); Mucus,Urine Few per lpf (None-Few); Nitrite,Urine Negative (Negative); Protein,Urine 50 mg/dL (Neg-Trace); RBC,Urine 0-3 per hpf (0-3); Renal Epithelial Cells,Urine Moderate per hpf (None-Few); Specific Gravity,Urine 1.024 (1.010-1.025); Squamous Epithelial Cell,Urine Few per hpf (None-Few); Transitional Epi Cells,Urine Few per hpf (None-Few)
[2020-11-14 15:14] LABS: Creatine Kinase 2737 Units/L (30-223)
[2020-11-14] MEDS ORDERED: Ondansetron 4 MG/2 ML VIAL IVP PRN (16:22)
[2020-11-14] MEDS ORDERED: Naloxone 0.4 MG/ML INJ IVP PRN (16:22)
[2020-11-14] MEDS ORDERED: Acetaminophen 325 MG TABLET PO PRN (16:22)
[2020-11-14] MEDS: Ringers Solution, Lactated 1,000 ML IVC SCH (17:58)
[2020-11-14] MEDS ORDERED: Piperacillin/Tazobactam 3.375 GM in 0.9 % Sodium Chloride Mini Bag 100 ML IVPB SCH (18:00)
[2020-11-14] MEDS ORDERED: Ipratropium/Albuterol Neb 3 ML IH PRN (19:10)
[2020-11-14] MEDS: Sennosides/Docusate Sodium TABLET PO SCH (21:35)
[2020-11-14] MEDS: polyethylene glycoL 3350 17 GM POWD.PACK PO SCH (21:35)
[2020-11-15] MEDS: Ringers Solution, Lactated 1,000 ML IVC SCH ×3 (02:19→18:14)
[2020-11-15] MEDS: Piperacillin/Tazobactam 3.375 GM in 0.9 % Sodium Chloride Mini Bag 100 ML IVPB SCH ×3 (04:21→21:54)
[2020-11-15 07:04] LABS: Basophils # 0.1 K/mcL (0.0-0.2); Basophils % 0.5 %; Eosinophils # 0.4 K/mcL (0.0-0.6); Eosinophils % 3.3 %; Hematocrit 29.9 % (37.5-50.1); Hemoglobin 10.2 g/dL (12.9-16.9); Immature Granulocytes % 0.8 % (0-4); Lymphocytes # 1.7 K/mcL (0.6-4.6); Mean Corpuscular HGB Conc 34.1 g/dL (31.6-35.5); Mean Corpuscular Hemoglobin 33.7 pg (28.0-33.3); Mean Corpuscular Volume 98.7 fL (83.0-100.0); Mean Platelet Volume 9.7 fL (9.4-12.4); Monocytes # 0.9 K/mcL (0.0-1.3); Monocytes % 8.5 %; Neutrophils # 7.6 K/mcL (1.6-8.9); Platelet Count 176 K/mcL (140-400); Red Blood Count 3.03 M/mcL (4.19-5.50); Red Cell Distribution Width 12.7 % (11.5-14.5); Segmented Neutrophils % 70.9 %; White Blood Count 10.7 K/mcL (4.3-11.1)
[2020-11-15] MEDS: *HR* Enoxaparin 40 MG/0.4 ML SYRINGE SQ SCH (07:31)
[2020-11-15 07:48] LABS: Folate 8.6 ng/mL (3.0-16.0)
[2020-11-15] MEDS: Sennosides/Docusate Sodium TABLET PO SCH ×2 (09:54→21:54)
[2020-11-15] MEDS: polyethylene glycoL 3350 17 GM POWD.PACK PO SCH ×2 (09:54→21:54)
[2020-11-15] MEDS: Nicotine 14 MG PATCH.TD24 TD SCH (09:54)
[2020-11-15 12:11] LABS: Albumin 3.3 g/dL (3.5-5.7); Bilirubin,Direct 0.6 mg/dL (0.0-0.2); Bilirubin,Indirect 0.5 mg/dL (0.0-1.0); Bilirubin,Total 1.1 mg/dL (0.3-1.0); Calcium 9.2 mg/dL (8.6-10.3); Globulin 3.3 g/dL (2.4-3.5); Magnesium 1.9 mg/dL (1.6-2.6); Potassium 3.7 mEq/L (3.5-5.1); Thyroid Stimulating Hormone 0.512 mcIU/mL (0.340-5.600); Total Protein 6.6 g/dL (6.4-8.9)
[2020-11-15] MEDS ORDERED: Cyanocobalamin (B-12) 1,000 MCG/ML VIAL SQ ONE (13:55)
[2020-11-16] MEDS: Ringers Solution, Lactated 1,000 ML IVC SCH ×2 (04:15→14:50)
[2020-11-16] MEDS: Piperacillin/Tazobactam 3.375 GM in 0.9 % Sodium Chloride Mini Bag 100 ML IVPB SCH ×3 (04:16→20:37)
[2020-11-16 04:38] LABS: Basophils # 0.1 K/mcL (0.0-0.2); Basophils % 0.7 %; Eosinophils # 0.2 K/mcL (0.0-0.6); Eosinophils % 2.3 %; Hematocrit 29.2 % (37.5-50.1); Hemoglobin 10.3 g/dL (12.9-16.9); Immature Granulocytes % 1.2 % (0-4); Lymphocytes # 1.5 K/mcL (0.6-4.6); Mean Corpuscular HGB Conc 35.3 g/dL (31.6-35.5); Mean Corpuscular Hemoglobin 34.1 pg (28.0-33.3); Mean Corpuscular Volume 96.7 fL (83.0-100.0); Mean Platelet Volume 9.6 fL (9.4-12.4); Monocytes # 0.7 K/mcL (0.0-1.3); Monocytes % 8.2 %; Neutrophils # 6.4 K/mcL (1.6-8.9); Platelet Count 187 K/mcL (140-400); Red Blood Count 3.02 M/mcL (4.19-5.50); Red Cell Distribution Width 12.2 % (11.5-14.5); Segmented Neutrophils % 70.6 %; White Blood Count 9.1 K/mcL (4.3-11.1)
[2020-11-16 04:59] LABS: Calcium 9.5 mg/dL (8.6-10.3); Magnesium 1.5 mg/dL (1.6-2.6); Potassium 3.5 mEq/L (3.5-5.1)
[2020-11-16] MEDS: *HR* Enoxaparin 40 MG/0.4 ML SYRINGE SQ SCH (06:17)
[2020-11-16] MEDS: polyethylene glycoL 3350 17 GM POWD.PACK PO SCH ×2 (08:25→20:37)
[2020-11-16] MEDS: Nicotine 14 MG PATCH.TD24 TD SCH ×2 (08:25→23:54)
[2020-11-16] MEDS: Sennosides/Docusate Sodium TABLET PO SCH ×2 (08:25→20:36)
[2020-11-16] MEDS ORDERED: NIFEdipine XL (24 HR) 30 MG TAB.ER.24 PO SCH (09:00)
[2020-11-16] MEDS: *HR* OxyCODONE/APAP 7.5/325 TABLET PO PRN (20:04)
[2020-11-17] MEDS ORDERED: NIFEdipine Immed Rel 10 MG CAPSULE PO ONE (00:30)
[2020-11-17] MEDS: Ringers Solution, Lactated 1,000 ML IVC SCH (02:06)
[2020-11-17] MEDS: *HR* OxyCODONE/APAP 7.5/325 TABLET PO PRN ×3 (02:07→17:14)
[2020-11-17 02:24] LABS: Basophils # 0.1 K/mcL (0.0-0.2); Basophils % 1.1 %; Eosinophils # 0.2 K/mcL (0.0-0.6); Eosinophils % 2.5 %; Hematocrit 30.9 % (37.5-50.1); Hemoglobin 10.5 g/dL (12.9-16.9); Immature Granulocytes % 1.5 % (0-4); Lymphocytes # 1.7 K/mcL (0.6-4.6); Lymphocytes % 18.2 %; Mean Corpuscular Hemoglobin 32.8 pg (28.0-33.3); Mean Corpuscular Volume 96.6 fL (83.0-100.0); Mean Platelet Volume 9.2 fL (9.4-12.4); Monocytes # 0.9 K/mcL (0.0-1.3); Monocytes % 9.7 %; Neutrophils # 6.3 K/mcL (1.6-8.9); Platelet Count 193 K/mcL (140-400); Red Cell Distribution Width 11.9 % (11.5-14.5); White Blood Count 9.4 K/mcL (4.3-11.1)
[2020-11-17 02:48] LABS: BUN/Creatinine Ratio 26 (6-26); Blood Urea Nitrogen 27 mg/dL (8-23); Calcium 9.3 mg/dL (8.6-10.3); Carbon Dioxide 26 mEq/L (23-29); Chloride 103 mEq/L (98-107); Glucose 106 mg/dL (70-105); Magnesium 1.3 mg/dL (1.6-2.6); Osmolality,Calculated 292 (280-300); Potassium 3.2 mEq/L (3.5-5.1); Sodium 138 mEq/L (136-145); eGFR For African Americans > 60 (> 60); eGFR For Non-African Americans > 60 (> 60)
[2020-11-17] MEDS: Piperacillin/Tazobactam 3.375 GM in 0.9 % Sodium Chloride Mini Bag 100 ML IVPB SCH (04:42)
[2020-11-17] MEDS: *HR* Enoxaparin 40 MG/0.4 ML SYRINGE SQ SCH (06:17)
[2020-11-17] MEDS: Aspirin Enteric Coated 81 MG Tablet PO SCH (09:21)
[2020-11-17] MEDS: NIFEdipine XL (24 HR) 60 MG TAB.ER.24 PO SCH (09:21)
[2020-11-17] MEDS: Sennosides/Docusate Sodium TABLET PO SCH (09:21)
[2020-11-17] MEDS: Metoprolol XL (24 HR) Succ 50 MG TAB.ER.24H PO SCH (09:21)
[2020-11-17] MEDS: Nicotine 14 MG PATCH.TD24 TD SCH (09:23)
[2020-11-17] MEDS: polyethylene glycoL 3350 17 GM POWD.PACK PO SCH ×2 (09:23→22:44)
[2020-11-18] MEDS: *HR* OxyCODONE/APAP 7.5/325 TABLET PO PRN ×3 (00:25→16:12)
[2020-11-18] MEDS: *HR* Enoxaparin 40 MG/0.4 ML SYRINGE SQ SCH (06:28)
[2020-11-18] MEDS: Nicotine 14 MG PATCH.TD24 TD SCH (07:55)
[2020-11-18] MEDS: polyethylene glycoL 3350 17 GM POWD.PACK PO SCH (07:55)
[2020-11-18] MEDS: Metoprolol XL (24 HR) Succ 50 MG TAB.ER.24H PO SCH (07:56)
[2020-11-18] MEDS: Aspirin Enteric Coated 81 MG Tablet PO SCH (07:56)
[2020-11-18 08:18] LABS: Basophils # 0.1 K/mcL (0.0-0.2); Basophils % 0.9 %; Eosinophils # 0.4 K/mcL (0.0-0.6); Eosinophils % 3.6 %; Hematocrit 30.8 % (37.5-50.1); Hemoglobin 10.3 g/dL (12.9-16.9); Immature Granulocytes % 2.2 % (0-4); Lymphocytes # 1.9 K/mcL (0.6-4.6); Lymphocytes % 19.4 %; Mean Corpuscular HGB Conc 33.4 g/dL (31.6-35.5); Mean Corpuscular Hemoglobin 32.8 pg (28.0-33.3); Mean Corpuscular Volume 98.1 fL (83.0-100.0); Mean Platelet Volume 9.3 fL (9.4-12.4); Monocytes # 1.1 K/mcL (0.0-1.3); Monocytes % 10.8 %; Neutrophils # 6.3 K/mcL (1.6-8.9); Platelet Count 207 K/mcL (140-400); Red Blood Count 3.14 M/mcL (4.19-5.50); Red Cell Distribution Width 11.9 % (11.5-14.5); Segmented Neutrophils % 63.1 %
[2020-11-18 08:33] LABS: BUN/Creatinine Ratio 24 (6-26); Blood Urea Nitrogen 19 mg/dL (8-23); Calcium 9.2 mg/dL (8.6-10.3); Carbon Dioxide 29 mEq/L (23-29); Chloride 102 mEq/L (98-107); Glucose 90 mg/dL (70-105); Magnesium 1.5 mg/dL (1.6-2.6); Osmolality,Calculated 288 (280-300); Potassium 3.4 mEq/L (3.5-5.1); Sodium 138 mEq/L (136-145); eGFR For African Americans > 60 (> 60); eGFR For Non-African Americans > 60 (> 60)
[2020-11-18] MEDS: NIFEdipine XL (24 HR) 60 MG TAB.ER.24 PO SCH (09:14)
[2020-11-18] MEDS ORDERED: polyethylene glycoL 3350 17 GM POWD.PACK PO PRN (11:47)
[2020-11-18] MEDS: Budesonide/Formoterol 80/4.5 1 PUFF INH IH SCH (20:14)
[2020-11-19] MEDS ORDERED: Tiotropium 10 INH DOSE IH ONE (03:35)
[2020-11-19] MEDS: *HR* OxyCODONE/APAP 7.5/325 TABLET PO PRN (05:47)
[2020-11-19 06:10] LABS: BUN/Creatinine Ratio 18 (6-26); Blood Urea Nitrogen 16 mg/dL (8-23); Calcium 9.1 mg/dL (8.6-10.3); Carbon Dioxide 27 mEq/L (23-29); Chloride 101 mEq/L (98-107); Glucose 121 mg/dL (70-105); Magnesium 1.6 mg/dL (1.6-2.6); Osmolality,Calculated 282 (280-300); Potassium 3.6 mEq/L (3.5-5.1); Sodium 135 mEq/L (136-145); eGFR For African Americans > 60 (> 60); eGFR For Non-African Americans > 60 (> 60)
[2020-11-19] MEDS: Ringers Solution, Lactated 1,000 ML IVC SCH (07:05)
[2020-11-19] MEDS: *HR* Enoxaparin 40 MG/0.4 ML SYRINGE SQ SCH (08:02)
[2020-11-19] MEDS: Aspirin Enteric Coated 81 MG Tablet PO SCH (08:06)
[2020-11-19] MEDS: Metoprolol XL (24 HR) Succ 50 MG TAB.ER.24H PO SCH (08:06)
[2020-11-19] MEDS: Nicotine 14 MG PATCH.TD24 TD SCH (08:07)
[2020-11-19] MEDS: NIFEdipine XL (24 HR) 60 MG TAB.ER.24 PO SCH (10:06)
[2020-11-19] MEDS ORDERED: hydroCHLOROthiazide 25 MG TABLET PO SCH (10:45)
[2020-11-19] MEDS: Tiotropium 10 INH DOSE IH SCH (11:25)
[2020-11-19] MEDS: Budesonide/Formoterol 80/4.5 1 PUFF INH IH SCH ×2 (11:25→19:58)
[2020-11-19] MEDS: *HR* OxyCODONE/APAP 10/325 TABLET PO PRN ×2 (14:20→20:31)
[2020-11-20] MEDS: *HR* Enoxaparin 40 MG/0.4 ML SYRINGE SQ SCH (06:30)
[2020-11-20] MEDS: *HR* OxyCODONE/APAP 10/325 TABLET PO PRN ×2 (07:31→16:32)
[2020-11-20] MEDS: Aspirin Enteric Coated 81 MG Tablet PO SCH (07:31)
[2020-11-20] MEDS: Nicotine 14 MG PATCH.TD24 TD SCH (07:32)
[2020-11-20] MEDS: Metoprolol XL (24 HR) Succ 50 MG TAB.ER.24H PO SCH (07:32)
[2020-11-20] MEDS: Tiotropium 10 INH DOSE IH SCH (08:07)
[2020-11-20] MEDS: Budesonide/Formoterol 80/4.5 1 PUFF INH IH SCH ×2 (08:07→20:39)
[2020-11-20] MEDS ORDERED: hydroCHLOROthiazide 25 MG TABLET PO SCH (09:00)
[2020-11-20] MEDS ORDERED: Valsartan 160 MG TABLET PO SCH (09:00)
[2020-11-20 12:03] LABS: Influenza A PCR Negative (Negative); Influenza B PCR Negative (Negative); Resp. Syncytial Virus PCR Negative (Negative)
[2020-11-20 12:06] LABS: SARS-CoV-2 by PCR (In House) Negative (Negative)
[2020-11-20 18:59] VITALS: BP 119/72; PULSE 81; TEMP 100
[2020-11-20 20:41] VITALS: O2SAT 91
== END 2020-11-20 21:07 | disposition other institution (70) | DRG 871 ==
LOC: EMEROOARM 08:49 → 3ANU 08:49 → SUATTDRO 18:09 → 3ANU 18:52 → SUATTDRO 19:12
PROVIDERS: ADMIT Pharmacist; ATTEND Internal Medicine

== ENCOUNTER 2020-12-19 16:52 | Inpatient (IN) ==
[2020-12-19] MEDS ORDERED: Vancomycin 2,000 MG/520 ML IV.SOLN IVPB ONE (17:34)
[2020-12-19] MEDS ORDERED: 0.9 % Sodium Chloride 1,000 ML IV ONE (17:34)
[2020-12-19 18:02] LABS: Basophils # 0.1 K/mcL (0.0-0.2); Basophils % 0.4 %; Eosinophils # 0.1 K/mcL (0.0-0.6); Eosinophils % 0.4 %; Hematocrit 26.4 % (37.5-50.1); Hemoglobin 9.1 g/dL (12.9-16.9); Immature Granulocytes % 3.5 % (0-4); Lymphocytes # 1.5 K/mcL (0.6-4.6); Lymphocytes % 9.4 %; Mean Corpuscular HGB Conc 34.5 g/dL (31.6-35.5); Mean Platelet Volume 9.3 fL (9.4-12.4); Platelet Count 261 K/mcL (140-400); Red Blood Count 2.84 M/mcL (4.19-5.50); Segmented Neutrophils % 80.3 %; White Blood Count 16.2 K/mcL (4.3-11.1)
[2020-12-19 18:20] LABS: Albumin 2.8 g/dL (3.5-5.7); Albumin/Globulin Ratio 0.7 (1.1-2.2); Bilirubin,Direct 0.8 mg/dL (0.0-0.2); Bilirubin,Indirect 0.6 mg/dL (0.0-1.0); Bilirubin,Total 1.4 mg/dL (0.3-1.0); Calcium 8.8 mg/dL (8.6-10.3); Globulin 3.9 g/dL (2.4-3.5); Total Protein 6.7 g/dL (6.4-8.9)
[2020-12-19 18:27] LABS: Troponin I 0.04 ng/mL (< 0.04)
[2020-12-19] MEDS ORDERED: Cefepime HCl 2,000 MG in Water for inj. (sterile) 20 ML IVP ONE (19:00)
[2020-12-19 19:23] LABS: INR 1.4; Prothrombin Time 15.4 Seconds (9.4-12.1)
[2020-12-19 19:25] LABS: Activated Partial Thrombo Time 26.2 Seconds (26.0-36.0)
[2020-12-19 19:40] LABS: Bilirubin,Urine Negative (Negative); Blood,Urine Small (Negative); Clarity,Urine Clear (Clear); Color,Urine Yellow (Yellow); Glucose,Urine (UA) Normal (Normal); Ketones,Urine Negative (Negative); Leukocyte Esterase,Urine Negative (Negative); Nitrite,Urine Negative (Negative); Protein,Urine 100 mg/dL (Neg-Trace); Specific Gravity,Urine 1.025 (1.010-1.025); Urobilinogen,Urine Normal (Normal)
[2020-12-19 19:43] LABS: Hyaline Casts,Urine Few per lpf (None Seen); Squamous Epithelial Cell,Urine Few per hpf (None-Few)
[2020-12-19 19:44] LABS: Bacteria,Urine Moderate per hpf (None-Few); Mucus,Urine Few per lpf (None-Few)
[2020-12-19] MEDS ORDERED: Naloxone 0.4 MG/ML INJ IVP PRN (21:57)
[2020-12-19 22:52] LABS: BUN/Creatinine Ratio 28 (6-26); Blood Urea Nitrogen 85 mg/dL (8-23); Calcium 8.5 mg/dL (8.6-10.3); Carbon Dioxide 24 mEq/L (23-29); Chloride 89 mEq/L (98-107); Glucose 104 mg/dL (70-105); Osmolality,Calculated 282 (280-300); Potassium 5.2 mEq/L (3.5-5.1); Sodium 123 mEq/L (136-145); Troponin I < 0.03 ng/mL (< 0.04); eGFR For African Americans 25 (> 60); eGFR For Non-African Americans 21 (> 60)
[2020-12-20 00:49] LABS: Basophils # 0.1 K/mcL (0.0-0.2); Basophils % 0.3 %; Eosinophils # 0.2 K/mcL (0.0-0.6); Eosinophils % 1.6 %; Hematocrit 24.9 % (37.5-50.1); Hemoglobin 8.3 g/dL (12.9-16.9); Immature Granulocytes % 2.9 % (0-4); Lymphocytes # 1.4 K/mcL (0.6-4.6); Lymphocytes % 9.7 %; Mean Corpuscular HGB Conc 33.3 g/dL (31.6-35.5); Mean Corpuscular Hemoglobin 31.1 pg (28.0-33.3); Mean Corpuscular Volume 93.3 fL (83.0-100.0); Monocytes # 0.9 K/mcL (0.0-1.3); Monocytes % 6.1 %; Neutrophils # 11.6 K/mcL (1.6-8.9); Platelet Count 230 K/mcL (140-400); Red Blood Count 2.67 M/mcL (4.19-5.50); Red Cell Distribution Width 14.1 % (11.5-14.5); Segmented Neutrophils % 79.4 %; White Blood Count 14.6 K/mcL (4.3-11.1)
[2020-12-20 00:51] LABS: VBG HCO3 24 mEq/L (21-27); VBG PCO2 41 mmHg (41-51); VBG PH 7.37 pH Units (7.32-7.42); VBG PO2 50 mmHg (25-50)
[2020-12-20 00:59] LABS: INR 1.4; Prothrombin Time 15.2 Seconds (9.4-12.1)
[2020-12-20 01:05] LABS: Albumin 2.7 g/dL (3.5-5.7); Albumin/Globulin Ratio 0.8 (1.1-2.2); Bilirubin,Total 1.2 mg/dL (0.3-1.0); Calcium 8.5 mg/dL (8.6-10.3); Globulin 3.6 g/dL (2.4-3.5); Total Protein 6.3 g/dL (6.4-8.9)
[2020-12-20] MEDS ORDERED: *HR* Dextrose 50 % in Water (Syg) 50 ML SYRINGE IVP PRN (01:20)
[2020-12-20] MEDS ORDERED: D5% in Water 1,000 ML IVC PRN (01:20)
[2020-12-20] MEDS ORDERED: Dextrose Gel 15 GM/37.5 ML TUBE PO PRN ×2 (01:20)
[2020-12-20] MEDS ORDERED: Nicotine 2 MG GUM BC PRN (01:32)
[2020-12-20 02:06] LABS: Magnesium 1.7 mg/dL (1.6-2.6); Phosphorous 4.1 mg/dL (2.7-4.5)
[2020-12-20 02:20] LABS: Thyroid Stimulating Hormone 1.277 mcIU/mL (0.340-5.600)
[2020-12-20] MEDS: Ipratropium/Albuterol Neb 3 ML IH SCH ×5 (03:14→20:55)
[2020-12-20] MEDS ORDERED: Cefepime HCl 1,000 MG in Water for inj. (sterile) 10 ML IVPB SCH (06:00)
[2020-12-20] MEDS ORDERED: Piperacillin/Tazobactam 3.375 GM in 0.9 % Sodium Chloride Mini Bag 100 ML IVPB SCH (08:00)
[2020-12-20] MEDS: *HR* Heparin 5,000 UNIT/ML VIAL SQ SCH ×3 (08:39→20:27)
[2020-12-20] MEDS: Lactobacillus 1 EACH CAP.SPRINK PO SCH ×3 (08:39→16:18)
[2020-12-20] MEDS: Chlorhexidine Rinse 15 ML MOUTHWASH MM SCH ×2 (08:39→19:34)
[2020-12-20] MEDS: Nicotine 14 MG PATCH.TD24 TD SCH (08:39)
[2020-12-20] MEDS: Piperacillin/Tazobactam 3.375 GM in 0.9 % Sodium Chloride Mini Bag 100 ML IVPB SCH ×2 (09:56→16:17)
[2020-12-20] MEDS: Vancomycin 1,500 MG/265 ML IV.SOLN IVPB SCH (09:56)
[2020-12-20 19:18] LABS: Acinetobacter baumannii by PCR Not Detected (Not Detect); Candida albicans by PCR Not Detected (Not Detect); Candida glabrata by PCR Not Detected (Not Detect); Candida krusei by PCR Not Detected (Not Detect); Candida parapsilosis by PCR Not Detected (Not Detect); Candida tropicalis by PCR Not Detected (Not Detect); Enterobacter cloacae Cmplx PCR Not Detected (Not Detect); Enterobacteriaceae by PCR Not Detected (Not Detect); Enterococcus by PCR Not Detected (Not Detect); Escherichia coli by PCR Not Detected (Not Detect); Klebsiella oxytoca by PCR Not Detected (Not Detect); Klebsiella pneumoniae by PCR Not Detected (Not Detect); Proteus by PCR Not Detected (Not Detect); Pseudomonas aeruginosa by PCR Not Detected (Not Detect); Serratia marcescens by PCR Not Detected (Not Detect); Staphylococcus aureus by PCR Not Detected (Not Detect); Staphylococcus by PCR DETECTED (Not Detect); Streptococcus agalactiae(B)PCR Not Detected (Not Detect); Streptococcus by PCR Not Detected (Not Detect); Streptococcus pneumoniae PCR Not Detected (Not Detect); Streptococcus pyogenes (A) PCR Not Detected (Not Detect); mecA Methicillin-Resist Gene Not Detected (Not Detect)
[2020-12-20] MEDS: *HR* OxyCODONE Oral Soln 5 MG/5 ML UD.LIQ PO PRN (20:26)
[2020-12-20] MEDS: Budesonide/Formoterol 80/4.5 1 PUFF INH IH SCH (20:55)
[2020-12-21 01:17] LABS: Hematocrit 21.9 % (37.5-50.1); Hemoglobin 7.4 g/dL (12.9-16.9); Mean Corpuscular HGB Conc 33.8 g/dL (31.6-35.5); Mean Corpuscular Hemoglobin 32.2 pg (28.0-33.3); Mean Corpuscular Volume 95.2 fL (83.0-100.0); Mean Platelet Volume 9.3 fL (9.4-12.4); Platelet Count 210 K/mcL (140-400); Red Cell Distribution Width 14.1 % (11.5-14.5); White Blood Count 12.8 K/mcL (4.3-11.1)
[2020-12-21 01:34] LABS: Calcium 8.2 mg/dL (8.6-10.3); Potassium 4.3 mEq/L (3.5-5.1)
[2020-12-21] MEDS: Piperacillin/Tazobactam 3.375 GM in 0.9 % Sodium Chloride Mini Bag 100 ML IVPB SCH ×4 (03:48→21:48)
[2020-12-21] MEDS: Ipratropium/Albuterol Neb 3 ML IH SCH ×4 (03:53→20:05)
[2020-12-21] MEDS: *HR* Heparin 5,000 UNIT/ML VIAL SQ SCH ×3 (05:25→21:47)
[2020-12-21] MEDS: Chlorhexidine Rinse 15 ML MOUTHWASH MM SCH (08:56)
[2020-12-21] MEDS: Aspirin Enteric Coated 81 MG Tablet PO SCH (08:57)
[2020-12-21] MEDS: Nicotine 14 MG PATCH.TD24 TD SCH (08:57)
[2020-12-21] MEDS: Lactobacillus 1 EACH CAP.SPRINK PO SCH ×2 (08:57→21:48)
[2020-12-21] MEDS: Vancomycin 1,500 MG/265 ML IV.SOLN IVPB SCH (09:05)
[2020-12-21] MEDS ORDERED: Tiotropium 10 INH DOSE IH SCH (10:00)
[2020-12-21] MEDS: Budesonide/Formoterol 80/4.5 1 PUFF INH IH SCH ×2 (11:34→20:05)
[2020-12-21] MEDS: *HR* OxyCODONE Oral Soln 5 MG/5 ML UD.LIQ PO PRN ×2 (13:18→21:48)
[2020-12-22 02:33] LABS: Hematocrit 23.5 % (37.5-50.1); Hemoglobin 7.6 g/dL (12.9-16.9); Mean Corpuscular HGB Conc 32.3 g/dL (31.6-35.5); Mean Corpuscular Hemoglobin 30.5 pg (28.0-33.3); Mean Corpuscular Volume 94.4 fL (83.0-100.0); Platelet Count 218 K/mcL (140-400); Red Blood Count 2.49 M/mcL (4.19-5.50); Red Cell Distribution Width 13.9 % (11.5-14.5); White Blood Count 11.6 K/mcL (4.3-11.1)
[2020-12-22 02:52] LABS: BUN/Creatinine Ratio 33 (6-26); Blood Urea Nitrogen 36 mg/dL (8-23); Calcium 8.2 mg/dL (8.6-10.3); Carbon Dioxide 27 mEq/L (23-29); Chloride 92 mEq/L (98-107); Glucose 104 mg/dL (70-105); Osmolality,Calculated 275 (280-300); Potassium 4.4 mEq/L (3.5-5.1); Sodium 128 mEq/L (136-145); eGFR For African Americans > 60 (> 60); eGFR For Non-African Americans > 60 (> 60)
[2020-12-22] MEDS: Ipratropium/Albuterol Neb 3 ML IH SCH ×4 (04:23→20:34)
[2020-12-22] MEDS: Piperacillin/Tazobactam 3.375 GM in 0.9 % Sodium Chloride Mini Bag 100 ML IVPB SCH ×3 (05:37→20:04)
[2020-12-22] MEDS: *HR* OxyCODONE Oral Soln 5 MG/5 ML UD.LIQ PO PRN ×2 (05:37→20:16)
[2020-12-22] MEDS: *HR* Heparin 5,000 UNIT/ML VIAL SQ SCH ×3 (05:37→20:05)
[2020-12-22] MEDS: Aspirin Enteric Coated 81 MG Tablet PO SCH (09:44)
[2020-12-22] MEDS: Lactobacillus 1 EACH CAP.SPRINK PO SCH ×2 (09:44→20:04)
[2020-12-22] MEDS: Nicotine 14 MG PATCH.TD24 TD SCH (09:45)
[2020-12-22] MEDS ORDERED: Albumin 25% 25gram/100mL 25 GM/100 ML IV.SOLN IVPB ONE (09:51)
[2020-12-22] MEDS: Vancomycin 1,500 MG/265 ML IV.SOLN IVPB SCH (10:49)
[2020-12-22] MEDS: Budesonide/Formoterol 80/4.5 1 PUFF INH IH SCH ×2 (11:09→20:33)
[2020-12-23] MEDS: Ipratropium/Albuterol Neb 3 ML IH SCH ×2 (03:37→10:44)
[2020-12-23] MEDS: Piperacillin/Tazobactam 3.375 GM in 0.9 % Sodium Chloride Mini Bag 100 ML IVPB SCH ×2 (05:00→12:22)
[2020-12-23] MEDS: *HR* Heparin 5,000 UNIT/ML VIAL SQ SCH ×3 (05:13→21:03)
[2020-12-23 05:37] LABS: Hematocrit 23.6 % (37.5-50.1); Hemoglobin 7.5 g/dL (12.9-16.9); Mean Corpuscular HGB Conc 31.8 g/dL (31.6-35.5); Mean Corpuscular Hemoglobin 30.6 pg (28.0-33.3); Mean Corpuscular Volume 96.3 fL (83.0-100.0); Mean Platelet Volume 8.8 fL (9.4-12.4); Platelet Count 205 K/mcL (140-400); Red Blood Count 2.45 M/mcL (4.19-5.50); Red Cell Distribution Width 13.8 % (11.5-14.5); White Blood Count 11.2 K/mcL (4.3-11.1)
[2020-12-23 05:56] LABS: BUN/Creatinine Ratio 25 (6-26); Blood Urea Nitrogen 20 mg/dL (8-23); Calcium 8.5 mg/dL (8.6-10.3); Carbon Dioxide 29 mEq/L (23-29); Chloride 93 mEq/L (98-107); Glucose 110 mg/dL (70-105); Osmolality,Calculated 271 (280-300); Potassium 3.9 mEq/L (3.5-5.1); Sodium 129 mEq/L (136-145); eGFR For African Americans > 60 (> 60); eGFR For Non-African Americans > 60 (> 60)
[2020-12-23] MEDS: *HR* OxyCODONE Oral Soln 5 MG/5 ML UD.LIQ PO PRN (06:20)
[2020-12-23] MEDS: Aspirin Enteric Coated 81 MG Tablet PO SCH (07:30)
[2020-12-23] MEDS: Lactobacillus 1 EACH CAP.SPRINK PO SCH ×2 (07:30→21:03)
[2020-12-23] MEDS: Nicotine 14 MG PATCH.TD24 TD SCH (07:30)
[2020-12-23] MEDS: Budesonide/Formoterol 80/4.5 1 PUFF INH IH SCH ×2 (10:44→20:10)
[2020-12-23] MEDS ORDERED: Vancomycin 1,500 MG/265 ML IV.SOLN IVPB SCH (11:00)
[2020-12-23] MEDS ORDERED: Ondansetron 4 MG/2 ML VIAL IM ONE (12:29)
[2020-12-23] MEDS ORDERED: Ondansetron 4 MG/2 ML VIAL IVP PRN (13:27)
[2020-12-23] MEDS ORDERED: Ipratropium/Albuterol Neb 3 ML IH PRN (13:28)
[2020-12-23] MEDS: Acetaminophen 325 MG TABLET PO PRN (16:15)
[2020-12-23] MEDS ORDERED: Furosemide 20 MG/2 ML VIAL IVP ONE (16:54)
[2020-12-23] MEDS ORDERED: Amoxicillin 500 MG CAPSULE PO SCH (21:00)
[2020-12-24 02:27] LABS: Hematocrit 24.9 % (37.5-50.1); Mean Corpuscular HGB Conc 32.1 g/dL (31.6-35.5); Mean Corpuscular Hemoglobin 30.8 pg (28.0-33.3); Mean Corpuscular Volume 95.8 fL (83.0-100.0); Mean Platelet Volume 8.7 fL (9.4-12.4); Platelet Count 212 K/mcL (140-400); Red Cell Distribution Width 13.7 % (11.5-14.5)
[2020-12-24 02:41] LABS: BUN/Creatinine Ratio 18 (6-26); Blood Urea Nitrogen 14 mg/dL (8-23); Calcium 8.4 mg/dL (8.6-10.3); Carbon Dioxide 28 mEq/L (23-29); Chloride 92 mEq/L (98-107); Glucose 102 mg/dL (70-105); Osmolality,Calculated 263 (280-300); Potassium 4.1 mEq/L (3.5-5.1); Sodium 126 mEq/L (136-145); eGFR For African Americans > 60 (> 60); eGFR For Non-African Americans > 60 (> 60)
[2020-12-24] MEDS: *HR* Heparin 5,000 UNIT/ML VIAL SQ SCH ×3 (05:01→20:35)
[2020-12-24] MEDS: *HR* OxyCODONE Oral Soln 5 MG/5 ML UD.LIQ PO PRN (05:26)
[2020-12-24] MEDS: Lactobacillus 1 EACH CAP.SPRINK PO SCH ×2 (08:14→20:35)
[2020-12-24] MEDS: Acetaminophen 325 MG TABLET PO PRN (08:14)
[2020-12-24] MEDS: Aspirin Enteric Coated 81 MG Tablet PO SCH (08:14)
[2020-12-24] MEDS: Nicotine 14 MG PATCH.TD24 TD SCH (08:14)
[2020-12-24] MEDS ORDERED: Furosemide 40 MG/4 ML VIAL IVP ONE (09:38)
[2020-12-24] MEDS: *HR* OxyCODONE/APAP 10/325 TABLET PO PRN ×2 (11:03→18:17)
[2020-12-24] MEDS: Budesonide/Formoterol 80/4.5 1 PUFF INH IH SCH ×2 (12:06→22:44)
[2020-12-24 12:27] LABS: Adenovirus Not Detected (Not Detect); Bordetella Pertussis Not Detected (Not Detect); Chlamydophila pneumoniae Not Detected (Not Detect); Coronavirus 229E Not Detected (Not Detect); Coronavirus HKU1 Not Detected (Not Detect); Coronavirus NL63 Not Detected (Not Detect); Coronavirus OC43 Not Detected (Not Detect); Human Metapneumovirus Not Detected (Not Detect); Human Rhinovirus/Enterovirus Not Detected (Not Detect); Influenza A Subtype 2009 H1 Not Detected (Not Detect); Influenza B Not Detected (Not Detect); Mycoplasma pneumoniae Not Detected (Not Detect); Parainfluenza Virus 1 Not Detected (Not Detect); Parainfluenza Virus 2 Not Detected (Not Detect); Parainfluenza Virus 3 Not Detected (Not Detect); Parainfluenza Virus 4 Not Detected (Not Detect); Respiratory Syncytial Virus Not Detected (Not Detect); SARS-CoV-2 Not Detected (Not Detect)
[2020-12-25 01:24] LABS: Hematocrit 25.1 % (37.5-50.1); Hemoglobin 8.1 g/dL (12.9-16.9); Mean Corpuscular HGB Conc 32.3 g/dL (31.6-35.5); Mean Corpuscular Hemoglobin 30.7 pg (28.0-33.3); Mean Corpuscular Volume 95.1 fL (83.0-100.0); Mean Platelet Volume 8.9 fL (9.4-12.4); Platelet Count 213 K/mcL (140-400); Red Blood Count 2.64 M/mcL (4.19-5.50); Red Cell Distribution Width 13.6 % (11.5-14.5); White Blood Count 11.8 K/mcL (4.3-11.1)
[2020-12-25 01:39] LABS: BUN/Creatinine Ratio 23 (6-26); Blood Urea Nitrogen 20 mg/dL (8-23); Calcium 8.3 mg/dL (8.6-10.3); Carbon Dioxide 28 mEq/L (23-29); Chloride 91 mEq/L (98-107); Glucose 128 mg/dL (70-105); Osmolality,Calculated 268 (280-300); Potassium 3.9 mEq/L (3.5-5.1); Sodium 127 mEq/L (136-145); eGFR For African Americans > 60 (> 60); eGFR For Non-African Americans > 60 (> 60)
[2020-12-25] MEDS: *HR* Heparin 5,000 UNIT/ML VIAL SQ SCH ×2 (05:14→15:31)
[2020-12-25] MEDS: *HR* OxyCODONE/APAP 10/325 TABLET PO PRN ×2 (05:15→11:27)
[2020-12-25] MEDS: Nicotine 14 MG PATCH.TD24 TD SCH (07:54)
[2020-12-25] MEDS: Lactobacillus 1 EACH CAP.SPRINK PO SCH (07:54)
[2020-12-25] MEDS: Aspirin Enteric Coated 81 MG Tablet PO SCH (08:00)
[2020-12-25] MEDS: Budesonide/Formoterol 80/4.5 1 PUFF INH IH SCH (08:13)
[2020-12-25] MEDS ORDERED: Furosemide 40 MG/4 ML VIAL IVP ONE (09:00)
[2020-12-25 15:16] VITALS: BP 96/58; PULSE 78; TEMP 98.8; O2SAT 95
== END 2020-12-25 19:59 | DRG 683 ==
LOC: 2ANU 16:52 → EMEROOARM 16:52 → SUATTDRO 22:19 → 2ANU 23:34 → SUATTDRO 12-20 15:47
PROVIDERS: ADMIT Family Medicine; ATTEND Student in an Organized Health Care Education/Training Program

== ENCOUNTER 2020-12-30 14:51 | Inpatient (IN) ==
[2020-12-30] MEDS ORDERED: Acetaminophen 325 MG TABLET PO PRN (21:21)
[2020-12-30] MEDS ORDERED: Naloxone 0.4 MG/ML INJ IVP PRN (21:21)
[2020-12-30] MEDS ORDERED: Ondansetron ODT 4 MG TAB.RAPDIS SL PRN (21:21)
[2020-12-30] MEDS ORDERED: Melatonin 3 MG TABLET PO PRN (21:21)
[2020-12-31] MEDS ORDERED: Ipratropium/Albuterol Neb 3 ML IH PRN (00:57)
[2020-12-31 01:30] LABS: Basophils # 0.1 K/mcL (0.0-0.2); Basophils % 0.5 %; Eosinophils # 0.2 K/mcL (0.0-0.6); Hematocrit 23.2 % (37.5-50.1); Hemoglobin 7.8 g/dL (12.9-16.9); Immature Granulocytes % 1.4 % (0-4); Lymphocytes # 1.9 K/mcL (0.6-4.6); Lymphocytes % 17.8 %; Mean Corpuscular HGB Conc 33.6 g/dL (31.6-35.5); Mean Corpuscular Hemoglobin 30.8 pg (28.0-33.3); Mean Corpuscular Volume 91.7 fL (83.0-100.0); Mean Platelet Volume 9.3 fL (9.4-12.4); Monocytes % 9.8 %; Neutrophils # 7.1 K/mcL (1.6-8.9); Platelet Count 254 K/mcL (140-400); Red Blood Count 2.53 M/mcL (4.19-5.50); Red Cell Distribution Width 14.1 % (11.5-14.5); Segmented Neutrophils % 68.5 %; White Blood Count 10.4 K/mcL (4.3-11.1)
[2020-12-31 01:38] LABS: INR 1.3; Prothrombin Time 14.8 Seconds (9.4-12.1)
[2020-12-31 01:41] LABS: Activated Partial Thrombo Time 27.4 Seconds (26.0-36.0)
[2020-12-31 01:51] LABS: BUN/Creatinine Ratio 25 (6-26); Blood Urea Nitrogen 29 mg/dL (8-23); Calcium 8.5 mg/dL (8.6-10.3); Carbon Dioxide 27 mEq/L (23-29); Chloride 84 mEq/L (98-107); Glucose 96 mg/dL (70-105); Osmolality,Calculated 256 (280-300); Potassium 3.6 mEq/L (3.5-5.1); Sodium 120 mEq/L (136-145); eGFR For African Americans > 60 (> 60); eGFR For Non-African Americans > 60 (> 60)
[2020-12-31] MEDS ORDERED: 0.9 % Sodium Chloride 1,000 ML IVC SCH (02:15)
[2020-12-31] MEDS: Aspirin Enteric Coated 81 MG Tablet PO SCH (08:26)
[2020-12-31] MEDS: *HR* HYDROcodone/Acet 5/325 mg TABLET PO PRN (08:26)
[2020-12-31] MEDS: Furosemide 40 MG TABLET PO SCH (08:27)
[2020-12-31] MEDS: Metoprolol XL (24 HR) Succ 50 MG TAB.ER.24H PO SCH (08:27)
[2020-12-31] MEDS ORDERED: hydroCHLOROthiazide 25 MG TABLET PO SCH (09:00)
[2020-12-31] MEDS ORDERED: Valsartan 160 MG TABLET PO SCH (09:00)
[2020-12-31 09:33] LABS: BUN/Creatinine Ratio 23 (6-26); Blood Urea Nitrogen 27 mg/dL (8-23); Calcium 8.4 mg/dL (8.6-10.3); Carbon Dioxide 27 mEq/L (23-29); Chloride 85 mEq/L (98-107); Glucose 103 mg/dL (70-105); Osmolality,Calculated 257 (280-300); Potassium 3.9 mEq/L (3.5-5.1); Sodium 121 mEq/L (136-145); eGFR For African Americans > 60 (> 60); eGFR For Non-African Americans > 60 (> 60)
[2020-12-31] MEDS: Tiotropium 10 INH DOSE IH SCH (11:04)
[2020-12-31] MEDS: Budesonide/Formoterol 160/4.5 1 PUFF INH IH SCH ×2 (11:06→21:11)
[2020-12-31] MEDS: *HR* OxyCODONE Immed Rel 5 MG TABLET PO PRN (13:51)
[2020-12-31] MEDS: *HR* Heparin 5,000 UNIT/ML VIAL SQ SCH ×2 (13:51→21:10)
[2020-12-31] MEDS: 0.9 % Sodium Chloride 1,000 ML IVC SCH ×2 (15:53→21:03)
[2021-01-01] MEDS: *HR* Heparin 5,000 UNIT/ML VIAL SQ SCH ×3 (06:13→20:20)
[2021-01-01] MEDS: Tiotropium 10 INH DOSE IH SCH (07:19)
[2021-01-01] MEDS: Budesonide/Formoterol 160/4.5 1 PUFF INH IH SCH ×2 (07:19→20:24)
[2021-01-01] MEDS: Metoprolol XL (24 HR) Succ 50 MG TAB.ER.24H PO SCH (07:57)
[2021-01-01 08:55] LABS: Basophils # 0.1 K/mcL (0.0-0.2); Basophils % 0.6 %; Eosinophils # 0.2 K/mcL (0.0-0.6); Eosinophils % 2.7 %; Hemoglobin 7.9 g/dL (12.9-16.9); Immature Granulocytes % 1.4 % (0-4); Lymphocytes # 1.6 K/mcL (0.6-4.6); Lymphocytes % 20.1 %; Mean Corpuscular HGB Conc 32.9 g/dL (31.6-35.5); Mean Corpuscular Hemoglobin 30.6 pg (28.0-33.3); Mean Platelet Volume 9.3 fL (9.4-12.4); Monocytes # 0.8 K/mcL (0.0-1.3); Monocytes % 9.6 %; Neutrophils # 5.2 K/mcL (1.6-8.9); Platelet Count 234 K/mcL (140-400); Red Blood Count 2.58 M/mcL (4.19-5.50); Red Cell Distribution Width 14.1 % (11.5-14.5); Segmented Neutrophils % 65.6 %; White Blood Count 7.9 K/mcL (4.3-11.1)
[2021-01-01] MEDS ORDERED: *HR* Midazolam HCl 2 MG/2 ML VIAL ONE (08:55)
[2021-01-01] MEDS ORDERED: Lidocaine -MPF 2% 5 ML VIAL ONE (08:55)
[2021-01-01] MEDS ORDERED: Lidocaine HCL 4 ML Topical Solution (Laryng-O-Jet Kit Sterile Pak) TP ONE (08:55)
[2021-01-01] MEDS ORDERED: *HR* FentaNYL (PF) 100 MCG/2 ML VIAL ONE (08:55)
[2021-01-01] MEDS ORDERED: *HR* Succinylcholine 200 MG/10 ML VIAL IVP ONE (08:55)
[2021-01-01] MEDS ORDERED: *HR* Propofol 200 MG/20 ML VIAL IVP ONE (08:55)
[2021-01-01 09:19] LABS: BUN/Creatinine Ratio 22 (6-26); Blood Urea Nitrogen 20 mg/dL (8-23); Calcium 8.3 mg/dL (8.6-10.3); Carbon Dioxide 27 mEq/L (23-29); Chloride 90 mEq/L (98-107); Glucose 95 mg/dL (70-105); Osmolality,Calculated 262 (280-300); Potassium 3.5 mEq/L (3.5-5.1); Sodium 125 mEq/L (136-145); eGFR For African Americans > 60 (> 60); eGFR For Non-African Americans > 60 (> 60)
[2021-01-01] MEDS ORDERED: *HR* HYDROMORPHONE 2 MG/ML VIAL ONE (09:31)
[2021-01-01] MEDS ORDERED: Ondansetron 4 MG/2 ML VIAL ONE (09:31)
[2021-01-01] MEDS ORDERED: Vancomycin 2,000 MG/520 ML IV.SOLN IVPB ONE (10:25)
[2021-01-01] MEDS: Valsartan 160 MG TABLET PO SCH (11:54)
[2021-01-01] MEDS: 0.9 % Sodium Chloride 1,000 ML IVC SCH ×3 (11:55→23:16)
[2021-01-01] MEDS: *HR* OxyCODONE Immed Rel 5 MG TABLET PO PRN ×2 (12:17→20:19)
[2021-01-01] MEDS: Aspirin Enteric Coated 81 MG Tablet PO SCH (12:17)
[2021-01-01] MEDS: Cefepime HCl 2,000 MG in 0.9 % Sodium Chloride Mini Bag 100 ML IVPB SCH ×2 (12:18→20:19)
[2021-01-01] MEDS: Vancomycin 1,500 MG/265 ML IV.SOLN IVPB SCH (23:15)
[2021-01-02] MEDS: 0.9 % Sodium Chloride 1,000 ML IVC SCH ×3 (05:03→20:26)
[2021-01-02] MEDS: *HR* Heparin 5,000 UNIT/ML VIAL SQ SCH ×3 (05:04→21:28)
[2021-01-02] MEDS: *HR* OxyCODONE Immed Rel 5 MG TABLET PO PRN ×3 (05:16→20:25)
[2021-01-02] MEDS: Aspirin Enteric Coated 81 MG Tablet PO SCH (07:37)
[2021-01-02] MEDS: Cefepime HCl 2,000 MG in 0.9 % Sodium Chloride Mini Bag 100 ML IVPB SCH ×2 (07:38→20:25)
[2021-01-02] MEDS: Metoprolol XL (24 HR) Succ 50 MG TAB.ER.24H PO SCH (07:38)
[2021-01-02] MEDS: Valsartan 160 MG TABLET PO SCH (07:38)
[2021-01-02] MEDS: Nicotine 14 MG PATCH.TD24 TD SCH (07:39)
[2021-01-02] MEDS: Tiotropium 10 INH DOSE IH SCH (07:51)
[2021-01-02] MEDS: Budesonide/Formoterol 160/4.5 1 PUFF INH IH SCH ×2 (07:51→21:00)
[2021-01-02] MEDS: Vancomycin 1,500 MG/265 ML IV.SOLN IVPB SCH (12:14)
[2021-01-02 14:10] LABS: Basophils # 0.1 K/mcL (0.0-0.2); Basophils % 0.8 %; Eosinophils # 0.1 K/mcL (0.0-0.6); Eosinophils % 0.8 %; Hematocrit 25.4 % (37.5-50.1); Immature Granulocytes % 1.5 % (0-4); Lymphocytes % 20.8 %; Mean Corpuscular HGB Conc 31.5 g/dL (31.6-35.5); Mean Corpuscular Hemoglobin 30.4 pg (28.0-33.3); Mean Corpuscular Volume 96.6 fL (83.0-100.0); Mean Platelet Volume 9.3 fL (9.4-12.4); Monocytes # 0.7 K/mcL (0.0-1.3); Monocytes % 7.8 %; Neutrophils # 6.4 K/mcL (1.6-8.9); Platelet Count 253 K/mcL (140-400); Red Blood Count 2.63 M/mcL (4.19-5.50); Red Cell Distribution Width 14.1 % (11.5-14.5); Segmented Neutrophils % 68.3 %; White Blood Count 9.4 K/mcL (4.3-11.1)
[2021-01-02 14:17] LABS: BUN/Creatinine Ratio 16 (6-26); Blood Urea Nitrogen 14 mg/dL (8-23); Calcium 8.1 mg/dL (8.6-10.3); Carbon Dioxide 21 mEq/L (23-29); Chloride 97 mEq/L (98-107); Glucose 116 mg/dL (70-105); Osmolality,Calculated 267 (280-300); Potassium 3.6 mEq/L (3.5-5.1); Sodium 128 mEq/L (136-145); eGFR For African Americans > 60 (> 60); eGFR For Non-African Americans > 60 (> 60)
[2021-01-03] MEDS: *HR* Heparin 5,000 UNIT/ML VIAL SQ SCH ×3 (05:37→21:12)
[2021-01-03] MEDS: *HR* OxyCODONE Immed Rel 5 MG TABLET PO PRN ×2 (05:38→20:45)
[2021-01-03] MEDS: 0.9 % Sodium Chloride 1,000 ML IVC SCH (06:53)
[2021-01-03] MEDS: Tiotropium 10 INH DOSE IH SCH (07:47)
[2021-01-03] MEDS: Budesonide/Formoterol 160/4.5 1 PUFF INH IH SCH ×2 (07:47→19:38)
[2021-01-03 09:52] LABS: Basophils # 0.1 K/mcL (0.0-0.2); Basophils % 1.2 %; Eosinophils # 0.2 K/mcL (0.0-0.6); Eosinophils % 2.4 %; Hematocrit 23.5 % (37.5-50.1); Hemoglobin 7.3 g/dL (12.9-16.9); Immature Granulocytes % 2.2 % (0-4); Lymphocytes # 2.3 K/mcL (0.6-4.6); Lymphocytes % 28.4 %; Mean Corpuscular HGB Conc 31.1 g/dL (31.6-35.5); Mean Corpuscular Hemoglobin 30.3 pg (28.0-33.3); Mean Corpuscular Volume 97.5 fL (83.0-100.0); Mean Platelet Volume 9.4 fL (9.4-12.4); Monocytes # 0.6 K/mcL (0.0-1.3); Monocytes % 7.7 %; Neutrophils # 4.7 K/mcL (1.6-8.9); Platelet Count 261 K/mcL (140-400); Red Blood Count 2.41 M/mcL (4.19-5.50); Red Cell Distribution Width 14.3 % (11.5-14.5); Segmented Neutrophils % 58.1 %
[2021-01-03] MEDS: *HR* HYDROcodone/Acet 5/325 mg TABLET PO PRN ×2 (10:11→17:29)
[2021-01-03] MEDS: Aspirin Enteric Coated 81 MG Tablet PO SCH (10:11)
[2021-01-03] MEDS: Metoprolol XL (24 HR) Succ 50 MG TAB.ER.24H PO SCH (10:11)
[2021-01-03] MEDS: Cefepime HCl 2,000 MG in 0.9 % Sodium Chloride Mini Bag 100 ML IVPB SCH ×2 (10:12→20:38)
[2021-01-03] MEDS: Valsartan 160 MG TABLET PO SCH (10:12)
[2021-01-03] MEDS: Nicotine 14 MG PATCH.TD24 TD SCH (10:12)
[2021-01-03 10:16] LABS: BUN/Creatinine Ratio 15 (6-26); Blood Urea Nitrogen 13 mg/dL (8-23); Calcium 8.3 mg/dL (8.6-10.3); Carbon Dioxide 24 mEq/L (23-29); Chloride 102 mEq/L (98-107); Glucose 87 mg/dL (70-105); Osmolality,Calculated 273 (280-300); Potassium 3.8 mEq/L (3.5-5.1); Sodium 132 mEq/L (136-145); eGFR For African Americans > 60 (> 60); eGFR For Non-African Americans > 60 (> 60)
[2021-01-03] MEDS: polyethylene glycoL 3350 17 GM POWD.PACK PO SCH (13:57)
[2021-01-04 01:56] LABS: Basophils # 0.1 K/mcL (0.0-0.2); Basophils % 0.8 %; Eosinophils # 0.2 K/mcL (0.0-0.6); Eosinophils % 2.4 %; Hematocrit 21.6 % (37.5-50.1); Hemoglobin 6.8 g/dL (12.9-16.9); Immature Granulocytes % 3.1 % (0-4); Lymphocytes # 2.6 K/mcL (0.6-4.6); Lymphocytes % 26.9 %; Mean Corpuscular HGB Conc 31.5 g/dL (31.6-35.5); Mean Corpuscular Hemoglobin 30.4 pg (28.0-33.3); Mean Corpuscular Volume 96.4 fL (83.0-100.0); Mean Platelet Volume 9.2 fL (9.4-12.4); Monocytes # 0.9 K/mcL (0.0-1.3); Monocytes % 9.3 %; Neutrophils # 5.5 K/mcL (1.6-8.9); Platelet Count 256 K/mcL (140-400); Red Blood Count 2.24 M/mcL (4.19-5.50); Red Cell Distribution Width 14.6 % (11.5-14.5); Segmented Neutrophils % 57.5 %; White Blood Count 9.6 K/mcL (4.3-11.1)
[2021-01-04 02:19] LABS: BUN/Creatinine Ratio 15 (6-26); Blood Urea Nitrogen 13 mg/dL (8-23); Carbon Dioxide 22 mEq/L (23-29); Chloride 103 mEq/L (98-107); Glucose 118 mg/dL (70-105); Osmolality,Calculated 281 (280-300); Potassium 4.1 mEq/L (3.5-5.1); Sodium 135 mEq/L (136-145); eGFR For African Americans > 60 (> 60); eGFR For Non-African Americans > 60 (> 60)
[2021-01-04] MEDS: *HR* Heparin 5,000 UNIT/ML VIAL SQ SCH ×3 (05:37→21:08)
[2021-01-04] MEDS: *HR* OxyCODONE Immed Rel 5 MG TABLET PO PRN ×3 (06:49→19:22)
[2021-01-04] MEDS ORDERED: 0.9 % Sodium Chloride 250 ML IVC SCH (08:15)
[2021-01-04] MEDS: Tiotropium 10 INH DOSE IH SCH (08:15)
[2021-01-04] MEDS: Budesonide/Formoterol 160/4.5 1 PUFF INH IH SCH ×2 (08:15→20:25)
[2021-01-04 08:58] LABS: Immature Reticulocyte % 29.4 % (11.0-38.0); Retculocyte # 0.13 M/mcL (0.05-0.10); Reticulocyte % 5.9 % (1.6-2.8)
[2021-01-04 09:13] LABS: Iron 49 mcg/dL (65-175)
[2021-01-04 09:37] LABS: Ferritin 517 ng/mL (20-250)
[2021-01-04 09:39] LABS: Folate 2.3 ng/mL (3.0-16.0)
[2021-01-04] MEDS: Nicotine 14 MG PATCH.TD24 TD SCH (11:32)
[2021-01-04] MEDS: polyethylene glycoL 3350 17 GM POWD.PACK PO SCH (11:32)
[2021-01-04] MEDS: Aspirin Enteric Coated 81 MG Tablet PO SCH (11:32)
[2021-01-04] MEDS: Valsartan 160 MG TABLET PO SCH (11:32)
[2021-01-04] MEDS: Metoprolol XL (24 HR) Succ 50 MG TAB.ER.24H PO SCH (11:32)
[2021-01-04] MEDS: Piperacillin/Tazobactam 3.375 GM in 0.9 % Sodium Chloride Mini Bag 100 ML IVPB SCH (23:03)
[2021-01-05 02:36] LABS: Basophils # 0.1 K/mcL (0.0-0.2); Basophils % 1.1 %; Eosinophils # 0.3 K/mcL (0.0-0.6); Eosinophils % 2.9 %; Hematocrit 23.7 % (37.5-50.1); Hemoglobin 7.7 g/dL (12.9-16.9); Immature Granulocytes % 3.9 % (0-4); Lymphocytes # 2.3 K/mcL (0.6-4.6); Lymphocytes % 25.7 %; Mean Corpuscular HGB Conc 32.5 g/dL (31.6-35.5); Mean Corpuscular Volume 95.6 fL (83.0-100.0); Monocytes # 0.8 K/mcL (0.0-1.3); Monocytes % 8.7 %; Neutrophils # 5.2 K/mcL (1.6-8.9); Platelet Count 254 K/mcL (140-400); Red Blood Count 2.48 M/mcL (4.19-5.50); Red Cell Distribution Width 14.5 % (11.5-14.5); Segmented Neutrophils % 57.7 %; White Blood Count 8.9 K/mcL (4.3-11.1)
[2021-01-05 02:49] LABS: BUN/Creatinine Ratio 13 (6-26); Blood Urea Nitrogen 10 mg/dL (8-23); Calcium 8.3 mg/dL (8.6-10.3); Carbon Dioxide 24 mEq/L (23-29); Chloride 103 mEq/L (98-107); Glucose 99 mg/dL (70-105); Osmolality,Calculated 275 (280-300); Potassium 4.2 mEq/L (3.5-5.1); Sodium 133 mEq/L (136-145); eGFR For African Americans > 60 (> 60); eGFR For Non-African Americans > 60 (> 60)
[2021-01-05] MEDS: *HR* OxyCODONE Immed Rel 5 MG TABLET PO PRN ×2 (05:32→13:14)
[2021-01-05] MEDS: *HR* Heparin 5,000 UNIT/ML VIAL SQ SCH ×3 (05:32→20:12)
[2021-01-05] MEDS: Valsartan 160 MG TABLET PO SCH ×2 (08:12→13:15)
[2021-01-05] MEDS: Aspirin Enteric Coated 81 MG Tablet PO SCH ×2 (08:12→13:15)
[2021-01-05] MEDS: polyethylene glycoL 3350 17 GM POWD.PACK PO SCH (08:13)
[2021-01-05] MEDS: Nicotine 14 MG PATCH.TD24 TD SCH (08:13)
[2021-01-05] MEDS: Furosemide 40 MG TABLET PO SCH (08:13)
[2021-01-05] MEDS: Metoprolol XL (24 HR) Succ 50 MG TAB.ER.24H PO SCH ×2 (08:14→13:15)
[2021-01-05] MEDS: Piperacillin/Tazobactam 3.375 GM in 0.9 % Sodium Chloride Mini Bag 100 ML IVPB SCH ×2 (08:29→16:50)
[2021-01-05] MEDS: Budesonide/Formoterol 160/4.5 1 PUFF INH IH SCH ×2 (10:16→21:45)
[2021-01-05] MEDS: Tiotropium 10 INH DOSE IH SCH (10:16)
[2021-01-05] MEDS ORDERED: *HR* Propofol 200 MG/20 ML VIAL IVP ONE (10:23)
[2021-01-05] MEDS ORDERED: Lidocaine -MPF 2% 5 ML VIAL ONE ×2 (10:23→12:09)
[2021-01-05 10:46] LABS: C-Reactive Protein 30 mg/L (Less than 10)
[2021-01-05] MEDS: *HR* HYDROcodone/Acet 5/325 mg TABLET PO PRN (20:13)
[2021-01-06] MEDS: Piperacillin/Tazobactam 3.375 GM in 0.9 % Sodium Chloride Mini Bag 100 ML IVPB SCH ×2 (00:25→08:28)
[2021-01-06 03:14] LABS: Basophils # 0.1 K/mcL (0.0-0.2); Basophils % 0.9 %; Eosinophils # 0.2 K/mcL (0.0-0.6); Eosinophils % 1.9 %; Hematocrit 25.6 % (37.5-50.1); Hemoglobin 8.2 g/dL (12.9-16.9); Immature Granulocytes % 4.1 % (0-4); Lymphocytes # 2.2 K/mcL (0.6-4.6); Lymphocytes % 21.6 %; Mean Corpuscular Hemoglobin 31.2 pg (28.0-33.3); Mean Corpuscular Volume 97.3 fL (83.0-100.0); Mean Platelet Volume 8.8 fL (9.4-12.4); Monocytes % 9.5 %; Neutrophils # 6.3 K/mcL (1.6-8.9); Platelet Count 265 K/mcL (140-400); Red Blood Count 2.63 M/mcL (4.19-5.50); Red Cell Distribution Width 15.1 % (11.5-14.5); White Blood Count 10.2 K/mcL (4.3-11.1)
[2021-01-06 03:33] LABS: BUN/Creatinine Ratio 14 (6-26); Blood Urea Nitrogen 11 mg/dL (8-23); Calcium 8.2 mg/dL (8.6-10.3); Carbon Dioxide 22 mEq/L (23-29); Chloride 102 mEq/L (98-107); Glucose 127 mg/dL (70-105); Osmolality,Calculated 275 (280-300); Potassium 3.8 mEq/L (3.5-5.1); Sodium 132 mEq/L (136-145); eGFR For African Americans > 60 (> 60); eGFR For Non-African Americans > 60 (> 60)
[2021-01-06] MEDS: *HR* Heparin 5,000 UNIT/ML VIAL SQ SCH ×2 (05:10→14:44)
[2021-01-06] MEDS: *HR* OxyCODONE Immed Rel 5 MG TABLET PO PRN ×2 (05:10→13:03)
[2021-01-06] MEDS: Budesonide/Formoterol 160/4.5 1 PUFF INH IH SCH (07:33)
[2021-01-06] MEDS: Tiotropium 10 INH DOSE IH SCH (07:34)
[2021-01-06] MEDS: polyethylene glycoL 3350 17 GM POWD.PACK PO SCH (08:20)
[2021-01-06] MEDS: Furosemide 40 MG TABLET PO SCH (08:21)
[2021-01-06] MEDS ORDERED: Valsartan 160 MG TABLET PO SCH (09:00)
[2021-01-06] MEDS ORDERED: Aspirin Enteric Coated 81 MG Tablet PO SCH (09:00)
[2021-01-06] MEDS ORDERED: Tdap (Boostrix) Vaccine 0.5 ML SYRINGE IM ONE (10:55)
[2021-01-06] MEDS: Nicotine 14 MG PATCH.TD24 TD SCH (11:23)
[2021-01-06 12:27] LABS: % Iron Saturation 21 % (20-55); Transferrin 169 mg/dL (200-400)
[2021-01-06 12:28] VITALS: PULSE 61
[2021-01-06 12:38] LABS: Adenovirus Not Detected (Not Detect); Bordetella Pertussis Not Detected (Not Detect); Chlamydophila pneumoniae Not Detected (Not Detect); Coronavirus 229E Not Detected (Not Detect); Coronavirus HKU1 Not Detected (Not Detect); Coronavirus NL63 Not Detected (Not Detect); Coronavirus OC43 Not Detected (Not Detect); Human Metapneumovirus Not Detected (Not Detect); Human Rhinovirus/Enterovirus Not Detected (Not Detect); Influenza A Subtype 2009 H1 Not Detected (Not Detect); Influenza B Not Detected (Not Detect); Mycoplasma pneumoniae Not Detected (Not Detect); Parainfluenza Virus 1 Not Detected (Not Detect); Parainfluenza Virus 2 Not Detected (Not Detect); Parainfluenza Virus 3 Not Detected (Not Detect); Parainfluenza Virus 4 Not Detected (Not Detect); Respiratory Syncytial Virus Not Detected (Not Detect); SARS-CoV-2 Not Detected (Not Detect)
[2021-01-06 15:39] VITALS: BP 134/44; TEMP 97.9; O2SAT 99
== END 2021-01-06 18:11 | disposition other institution (70) | DRG 580 ==
LOC: 3ANU → SUATTDRO 20:27
PROVIDERS: ADMIT Family Medicine; ATTEND Family Medicine